=== PATIENT | male | born 1980 | race Caucasian/White ===

== ENCOUNTER 2018-07-17 16:09 | Inpatient (IN) | payer MEDICAID ==
[2018-07-17] VITALS (7 sets, daily range): BP systolic 118–165; BP diastolic 45–116
[~2018-07-17] VITALS: Ht 180.3 cm; Wt 90.7 kg
[~2018-07-17 16:09] MED LIST: ATENOLOL 100MG100 MG PO; ATIVAN1 MG PO; METOPROLOL TART25 MG PO; NORTRIPTYLINE H10 M1 PO; PRENATABS FA T1 EACH PO; TENORMIN50 MG PO; THIAMINE HCL100 MG PO
[2018-07-17] MEDS ORDERED: KEPPRA1000 MG PO (16:17)
[2018-07-17] MEDS ORDERED: TRAZODONE HCL100 MG PO (16:18)
[2018-07-17 16:57] LABS: ABSOLUTE BASOPHILS 0.1 thou/uL (0.0-0.2); ABSOLUTE LYMPHOCYTES 2.1 thou/uL (0.8-5.3); ABSOLUTE MONOCYTES 0.7 thou/uL (0.0-1.2); ABSOLUTE NEUTROPHILS 7.3 thou/uL (1.6-8.1); EOSINOPHILS 0.1 %; HEMATOCRIT 44.8 % (42.0-52.0); HEMOGLOBIN 15.1 gm/dL (14.0-18.0); LYMPHOCYTES 20.5 %; MCH 30.1 pg (26.0-34.0); MCHC 33.7 g/dL (28.0-37.0); MCV 89.4 fL (80.0-100.0); NUCLEATED RBCS 0 /100WBC; PLATELET COUNT* 373 thou/uL (150-400); POLYS 71.4 %; RBC 5.02 mil/uL (4.50-6.00); RDW-CV 13.6 % (10.5-14.5); WBC 10.3 thou/uL (4.0-11.0)
[2018-07-17 17:07] LABS: ANION GAP 13 mmol/L (7-16); BUN 8 mg/dL (7-18); CALCIUM 8.8 mg/dL (8.5-10.1); CHLORIDE 99 mmol/L (98-107); CO2 25 mmol/L (21-32); CREATININE 1.1 mg/dL (0.6-1.3); GLUCOSE 98 mg/dL (70-99); SODIUM 137 mmol/L (136-145)
[2018-07-17 17:09] LABS: APTT 23.7 Seconds (25.0-31.3); PROTIME 10.2 Seconds (9.20-11.50)
[2018-07-17 17:11] LABS: POTASSIUM 2.8 mmol/L (3.5-5.1)
[2018-07-17 17:17] LABS: ALBUMIN 4.1 g/dL (3.4-5.0); ALKALINE PHOSPHATASE 109 U/L (46-116); NT-PRO BRAIN NAT PEPTIDE 53 pg/mL (<300); SGOT 40 U/L (15-37); SGPT 51 U/L (30-65); TOTAL PROTEIN 7.7 g/dL (6.4-8.2); TROPONIN-I LEVEL <0.06 ng/mL (<0.06)
[2018-07-17 17:19] LABS: SALICYLATE < 2.8 mg/dL (2.8-20.0)
[2018-07-17 17:21] LABS: ACETAMINOPHEN < 2 ug/mL (10-30); ALCOHOL < 10 mg/dL (<10)
[2018-07-17] MEDS ORDERED: PROTONIX40 M1 PO (19:37)
[2018-07-17] MEDS ORDERED: ZYPREXA 5 MG TAB5 M1 PO (19:37)
[2018-07-17] MEDS ORDERED: NORVASC5 MG PO (19:38)
[2018-07-17] MEDS ORDERED: PRAZOSIN 1 MG CA1 M1 PO (19:38)
[2018-07-17 20:44] LABS: % SATURATION 44 % (20-39); IRON 158 ug/dL (50-175)
--- NOTE | 2018-07-17 22:18 | NUR ---
R IJ CENTRAL LINE PLACED BY DR KRISHNAN. STAT XRAY OBTAINED, PER DR KRISHNAN LINE IS OK TO USE.
[2018-07-17 23:09] LABS: AMMONIA < 10 umol/L (11-32); MAGNESIUM 2.2 mg/dL (1.8-2.4); PHOSPHORUS* 3.1 mg/dL (2.5-4.9)
--- NOTE | 2018-07-17 23:49 | NUR ---
ADMITTED TO ICU BED 2 AT 1950, SEE ASSESSMENTS. PTS HIGHEST CIWA 15, TREATED WITH ATIVAN ORDERED. ZOFRAN GIVEN X1 FOR NAUSEA. PT IS PLEASANT AND POLITE, STATES HE HAS HAD LONG PERIODS OF SOBRIETY IN THE PAST AND DESIRES TO QUIT ALCOHOL PERMANENTLY. STATES HE IS OPEN TO ATTENDING COMMUNITY BASED SUPPORT GROUPS SUCH AA AND HAS DONE SO IN THE PAST. PT REPORTS HISTORY OF SEIZURES WITH WITHDRAWL WELL SEIZURES WHEN SOBER AND NOT DETOXING. HOME MED LIST OBTAINED FROM [facility] PT COULD NOT RECALL MEDS OR DOSES. SEIZURE AND FALL PRECAUTIONS INITIATED. ORIENTED TO ROOM/CALL LIGHT. PT CURRENTLY SLEEPING. CALL LIGHT WITHIN REACH.
[2018-07-18] VITALS (16 sets, daily range): BP systolic 105–138; BP diastolic 28–93
[2018-07-18 03:29] LABS: HEMATOCRIT 37.9 % (42.0-52.0); MCHC 33.1 g/dL (28.0-37.0); MCV 90.8 fL (80.0-100.0); RBC 4.18 mil/uL (4.50-6.00); RDW-CV 13.4 % (10.5-14.5); WBC 6.6 thou/uL (4.0-11.0)
[2018-07-18 03:34] LABS: HEMOGLOBIN 12.6 gm/dL (14.0-18.0)
--- NOTE | 2018-07-18 03:37 | NUR ---
NO URINE OUTPUT SINCE ADMIT TO UNIT AT 1950. PT DENIES FEELING URGE TO VOID. BLADDER SCANNED, RESIDUAL AMOUNT 218ML. NO INTERVENTION AT THIS TIME.
[2018-07-18 03:46] LABS: ALBUMIN 2.9 g/dL (3.4-5.0); CALCIUM 7.4 mg/dL (8.5-10.1); MAGNESIUM 2.2 mg/dL (1.8-2.4); POTASSIUM 3.3 mmol/L (3.5-5.1); TOTAL BILIRUBIN 0.9 mg/dL (<0.1-1.0); TOTAL PROTEIN 5.7 g/dL (6.4-8.2)
--- NOTE | 2018-07-18 09:04 | EKG ---
[place] [address] ELECTROCARDIOGRAM REPORT Name: JOSH MONETRO Room: [address] ADM IN M.R.#: [id number] Admission: 07/17/18 Attend Phys: Dena Daniels MD Discharge: Date of : 82 Report #: [id number] THIS REPORT FOR: //name// [facility] ED Test Date: 2018-07-17 Test Time: 17:16:12 Pat Name: JOSH MONTERO Department: Room: [facility] Gender: M Studio Associate: Zoran PEREZ : 1980 Requested By: Kyree Cartwright Order Number: [id number] MD: Brandan Peña Measurements Intervals [place] Rate: 80 P: 8 NM: 123 QRS: -38 QRSD: 86 T: -35 QT: 402 QTc: 464 Interpretive Statements Sinus rhythm Left axis deviation Nonspecific T abnormalities, inferior leads Baseline wander in lead(s) V6 Compared to ECG 02/05/2015 07:28:11 no change Electronically Signed On 07-18-2018 9:03:49 FORMULA CLERK by Brandan Peña [email or web address] <ELECTRONICALLY SIGNED> By: Brandan Peña MD, FAC 07/18/18 0903 1716 1716 Brandan Peña MD, [facility] /EPI
--- NOTE | 2018-07-18 10:30 | NUR ---
PT ADMITTED 07/17 WITH ALCOHOL WITHDRAWL, IS SLEEPING NOW, HAS BEEN SEDATED FROM HIS ATIVAN. WILL ASSESS AT LATER TIME AND PROVIDE ALCOHOL TREATMENT OPTIONS.
--- NOTE | 2018-07-18 10:57 | NUR ---
PATIENT ALERT BUT SEDATE. CO BUGS AND SHAKES. TAKES PO WELL.
[2018-07-19] VITALS (18 sets, daily range): BP systolic 101–159; BP diastolic 46–113
[2018-07-19 05:06] LABS: HEMATOCRIT 38.3 % (42.0-52.0); HEMOGLOBIN 12.6 gm/dL (14.0-18.0); MCH 30.3 pg (26.0-34.0); MCHC 32.8 g/dL (28.0-37.0); MCV 92.2 fL (80.0-100.0); MPV 8.9 fl. (7.2-11.1); RBC 4.15 mil/uL (4.50-6.00); RDW-CV 13.7 % (10.5-14.5); WBC 7.9 thou/uL (4.0-11.0)
--- NOTE | 2018-07-19 05:06 | NUR ---
PT IS RESTING, NO S/S DISTRESS, WHEN AWAKE PT STATES THAT HE IS SEEING "SPOTS" ON THE WALL AND SEEING PEOPLE. PT IS CALM AND COOPERATIVE, TAKES ATIVAN PO FOR WITHDRAWALS. VSS, NSR ON TELE, VOIDING ADEQUATELY PER URINAL, NO BM LAST NIGHT.
[2018-07-19 05:09] LABS: ALBUMIN 2.8 g/dL (3.4-5.0); CALCIUM 7.7 mg/dL (8.5-10.1); MAGNESIUM 2.1 mg/dL (1.8-2.4); PHOSPHORUS* 3.3 mg/dL (2.5-4.9); POTASSIUM 3.6 mmol/L (3.5-5.1); TOTAL BILIRUBIN 0.5 mg/dL (<0.1-1.0); TOTAL PROTEIN 5.7 g/dL (6.4-8.2)
--- NOTE | 2018-07-19 10:00 | NUR ---
RN ASSUMED CARE OF PT THIS AM. PT AROUSABLE TO VOICE/GENTLE TOUCH, ORIENTED X4. C/O HEADACHE AND NAUSEA. GOALS FOR TODAY INCLUDE MOVING TO TELE/MED SURG FLOOR, CONTROLLING HEADACHE AND NAUSEA, AND MAINTAINGING STABLE VS. PT DENIES ANY CONCERNS/QUESTIONS AT THIS TIME. STATES JUST WANTS HEADACHE AND NAUSEA TO "GO AWAY".
--- NOTE | 2018-07-19 10:45 | NUR ---
Pt sleeping, unable to easily wake him up. Will assess at later time and discuss alcohol treatment options.
[2018-07-19 11:12] LABS: URINE BILIRUBIN NEGATIVE (Negative); URINE BLOOD NEGATIVE (Negative); URINE CLARITY CLEAR; URINE COLOR YELLOW; URINE GLUCOSE-RANDOM NEGATIVE (Negative); URINE KETONES NEGATIVE (Negative); URINE LEUKOCYTES-REFLEX NEGATIVE (Negative); URINE NITRITE-REFLEX NEGATIVE (Negative); URINE PROTEIN NEGATIVE (Negative); URINE UROBILINOGEN 0.2 E.U./dl (0.2-1.0)
[2018-07-19 11:47] LABS: AMP/METHAMP Negative (Negative); BARBITURATES Negative (Negative); BENZODIAZEPINES Negative (Negative); COCAINE Negative (Negative); METHADONE Negative (Negative); OPIATES Negative (Negative); PCP Negative (Negative); THC Negative (Negative)
--- NOTE | 2018-07-19 17:03 | NUR ---
PT SLOWLY PROGRESSING TOWARDS GOALS. VSS. AFEBRILE. PT ALERT AND ORIENTED X4. C/O HEADACHE AND NAUSEA THROUGHOUT SHIFT, STATES ATIVAN RELIEVES BOTH AND MAKES THEM TOLERABLE. PT TOLERATING PO INTAKE. VOIDING WITHOUT DIFFICULTY. NO BM THIS SHIFT. PT DECLINED GETTING UP TO CHAIR OR GETTING BATH. PT NEEDS MRI, MRI SCREENING DONE AND TO HAVE MRI TOMORROW MORNING. PT DENIES FURTHER QUESTIONS/CONCERNS AT THIS TIME.
--- NOTE | 2018-07-19 18:00 | NUR ---
REPORT GIVEN TO CHRISTIAN HUANG. PT TX TO 229. PT TX VIA WHEELCHAIR WITH STAFF. PAPER CHART AND ALL BELONGINGS SENT WITH PT.
--- NOTE | 2018-07-19 18:20 | NUR ---
PT TRANSFERED FROM ICU. SR ON MONITOR. BANANA BAG INFUSING. PT ORIENTED TO ROOM AND CALL LIGHT. PT VERBALIZED UNDERSTANDING.
--- NOTE | 2018-07-19 23:03 | NUR ---
PATIENT'S HEART RATE NOTED TO BE 120-150'S ON MANAGER LANDSCAPE. VITALS OBTAINED AND WNL. EKG OBTAINED, READS SINUS TACHYCARDIA, PROLONGED QT INTERVAL, INFERIOR INFARCT, OLD. PATIENT ASYMPTOMATIC AND LYING IN BED LISTENING TO MUSIC. PHYSICIAN NOTIFIED OF FINDINGS. NO NEW ORDERS RECIEVED.
[2018-07-20] VITALS: BP 123/84
[2018-07-20 04:00] VITALS: BP 125/68
--- NOTE | 2018-07-20 05:48 | NUR ---
PATIENT'S HEART RATE IMPROVED WITH TIME AND ETOH WITHDRAWAL MEDICATION, 100-120'S, ASYPTOMATIC. PATIENT HAS RESTED THROUGHOUT THE SHIFT AND HAS OCCASIONALLY WOKE UP AND LISTENED TO MUSIC. PATIENT VOIDS PER URINAL. HOURLY ROUNDING OBSERVED. CALL LIGHT WITHIN REACH
[2018-07-20 06:02] LABS: HEMOGLOBIN 12.8 gm/dL (14.0-18.0); MCHC 32.7 g/dL (28.0-37.0); MCV 91.6 fL (80.0-100.0); MPV 8.8 fl. (7.2-11.1); RBC 4.26 mil/uL (4.50-6.00); RDW-CV 13.5 % (10.5-14.5); WBC 17.5 thou/uL (4.0-11.0)
[2018-07-20 06:20] LABS: ALBUMIN 2.9 g/dL (3.4-5.0); CALCIUM 8.2 mg/dL (8.5-10.1); CREATININE 1.2 mg/dL (0.6-1.3); MAGNESIUM 1.9 mg/dL (1.8-2.4); TOTAL BILIRUBIN 0.7 mg/dL (<0.1-1.0); TOTAL PROTEIN 6.2 g/dL (6.4-8.2)
[2018-07-20 06:31] LABS: POTASSIUM 2.9 mmol/L (3.5-5.1)
[2018-07-20 08:00] VITALS: BP 115/74
[2018-07-20 11:57] VITALS: BP 146/86
--- NOTE | 2018-07-20 12:41 | EKG ---
[place] [address] ELECTROCARDIOGRAM REPORT Name: JOSH MONTERO Room: [address] ADM IN M.R.#: [id number] Admission: 07/17/18 Attend Phys: Dena Daniels MD Discharge: Date of : 82 Report #: [id number] THIS REPORT FOR: //name// [facility] Test Date: 2018-07-19 Test Time: 22:15:21 Pat Name: JOSH MONTERO Department: Room: [address] Gender: M Bulb Filler: AUDELIA : 1980 Requested By: Abraham May Order Number: [id number] MD: Brandan Peña Measurements Intervals [place] Rate: 151 P: 23 PA: 152 QRS: -45 QRSD: 74 T: QT: 352 QTc: 559 Interpretive Statements Sinus tachycardia Inferior infarct, old Prolonged QT interval Compared to ECG 07/17/2018 17:16:12 Prolonged QT interval now present Sinus rhythm no longer present Electronically Signed On 07-20-2018 12:40:59 JAI ALAI PLAYER by Brandan Peña [email or web address] <ELECTRONICALLY SIGNED> By: Brandan Peña MD, [facility] 07/20/18 1240 2215 2215 Brandan Peña MD, [facility] /EPI
--- NOTE | 2018-07-20 13:13 | NUR ---
ASSESSMENT COMPLETED REFER TO COMPUTER CHARTING. CARIDAC MONITOR TRACKING ST. PATIENT RESTING IN BED REPORTING NO PAIN, NAUSEA OR SHORTNESS OF BREATH. BED IN LOW AND LOCKED POSITION. CALL LIGHT WITHIN REACH. SIDE RAILS UP AND PADDED. PATIENT ON ROOM AIR. IV REPLACED AND CENTRAL LINE REMOVED. IV FLUIDS INFUSING. CWAW CHARTED. WILL CONTINUE TO MONITOR.
[2018-07-20 15:38] VITALS: BP 99/70
--- NOTE | 2018-07-20 16:00 | NUR ---
CM UNABLE TO SPEAK WITH PT.TODAY. DYED YARN OPERATOR WAS BEGINNING ECHO CARDIOGRAM.WILL SEE IN AM.
[2018-07-20 19:00] VITALS: BP 123/88
--- NOTE | 2018-07-20 23:20 | NUR ---
PT ASSESSMENT COMPLETED. CIWA NOTED TO BE 15. PT HAS NOTABLE TREMORS AND REPORTS HALLUCINATIONS. PT IS PLEASANT AND COMPLIANT, ABLE TO FOLLOW COMMANDS. PT DENIES PAIN, N/V/D. PT CURRENTLY DOES NOT HAVE IV ASCCESS. RIGHT ARM RED AND SWOLLEN AND TENDER TO THE TOUCH. CLWR. PT DENIES ANY FURTHER NEEDS.
[2018-07-21] VITALS: BP 122/80
[2018-07-21 04:00] VITALS: BP 111/76
[2018-07-21 05:46] LABS: ABSOLUTE EOSINOPHILS 0.3 thou/uL (0.0-0.7); ABSOLUTE LYMPHOCYTES 2.9 thou/uL (0.8-5.3); ABSOLUTE MONOCYTES 0.9 thou/uL (0.0-1.2); ABSOLUTE NEUTROPHILS 5.8 thou/uL (1.6-8.1); BASOPHILS 0.5 %; HEMATOCRIT 39.9 % (42.0-52.0); HEMOGLOBIN 13.2 gm/dL (14.0-18.0); MCH 30.2 pg (26.0-34.0); MCHC 33.1 g/dL (28.0-37.0); MCV 91.3 fL (80.0-100.0); MONOCYTES 9.1 %; MPV 8.8 fl. (7.2-11.1); NUCLEATED RBCS 0 /100WBC; PLATELET COUNT* 237 thou/uL (150-400); POLYS 58.4 %; RBC 4.37 mil/uL (4.50-6.00); RDW-CV 13.6 % (10.5-14.5); WBC 9.9 thou/uL (4.0-11.0)
[2018-07-21 06:07] LABS: ALBUMIN 2.9 g/dL (3.4-5.0); CALCIUM 8.6 mg/dL (8.5-10.1); TOTAL BILIRUBIN 0.5 mg/dL (<0.1-1.0); TOTAL PROTEIN 6.6 g/dL (6.4-8.2)
[2018-07-21 08:00] VITALS: BP 125/76
--- NOTE | 2018-07-21 09:50 | NUR ---
PATIENT CARE ASSUMED AT 0700. PATIENT ASLEEP UPON ENTERING ROOM, BUT AWOKEN WITH MINIMIAL STIMULATION. AOX4. DOES REPORT TACTILE HALLUCINATIONS, BUT STATES "ALL VISUAL AND AUDITORY HALLCUNATIONS ARE GONE". DENIES PAIN. DENIES NAUSEA/VOMITING. DOES REPORT SMALL HEADACHE WITH SOME ANXIETY. CIWA 11. PATIENT GIVEN PRN DOSE OF ATIVAN. PATIENT HAS NO IV NO ONE HAS BEEN ABLE TO PLACE ONE. WILL CLARIFY WITH PHYSICIAN PATIENT NEEDS FOR ACCESS. SEIZURE PRECAUTIONS IN PLACE, HAS HAD NO ACTIVITY, BUT DOES HAVE MINIMAL TREMORS VISUALIZED. ENCOURAGED TO GET BATH, BUT PATIENT STATED "LATER TODAY I WILL". DENIES FURTHER NEEDS FROM NURSING AT THIS TIME. WILL CONTINUE WITH PLAN OF CARE.
--- NOTE | 2018-07-21 10:01 | NUR ---
DR ROOT IN TO SEE PATIENT. GAVE ORDERS FOR IT TO BE OKAY FOR NURSING TO LEAVE IV ACCESS OUT. HOWEVER, PHYSICIAN LEFT THE FLOOR, PATIENT BLOOD CULTURES RETURNED GRAM POSITIVE COCCI. PHYSICIAN PAGED.
--- NOTE | 2018-07-21 11:41 | NUR ---
SW met briefly with pt and provided alcohol abuse and support resources/referral lists. Pt was very sleepy but thankful for the information.
[2018-07-21 12:00] VITALS: BP 102/74
[2018-07-21 14:30] VITALS: BP 112/80
--- NOTE | 2018-07-21 14:39 | NUR ---
DR ROOT ORDERED PICC LINE R/T POSITIVE BLOOD CULTURES FROM INFECTED CENTRAL LINE. PLACED BY [facility]. [facility] PICC NURSE. DOUBLE LUMEN POWER PORT PLACED. IV ANITBIOTICS HUNG LATE R/T NO ACCESS, BUT ARE RUNNING AT THIS TIME. PATIENT TOLERATED PROCEDURE WELL AND VOICED NO CONCERNS.
--- NOTE | 2018-07-21 17:44 | NUR ---
NO ACUTE EVENTS SINCE PICC LINE INSERTION. PATIENT SHOWERED INDEPENDENTLY PRIOR TO INSERTION. PATIENT SITTING UP FOR ALL MEALS, GOOD APPETITE. STILL REPORTS HEADACHE, SLIGHT ANXIETY, AND MINIMAL TACTILE HALLUCATIONS. CIWA 8-12 TODAY. PICC LINE DRESSING REINFORCED R/T PATIENT SWEATING OFF DRESSING AROUND THE CORNERS. PATIENT DENIES FURTHER NEEDS.
[2018-07-21 19:00] VITALS: BP 129/87
--- NOTE | 2018-07-21 22:25 | NUR ---
PT TRACING SR ON MONITOR. PT IS HAVING TREMORS AND REPORTS HALLUCINATIONS. PT DENIES PAIN, N/V/D. PT IS PLEASANT AND FOLLOWS ALL COMMANDS APPROPRIATELY. CIWA IS 8. PRN ATIVAN GIVEN. PT IS RESTLESS. PICC TO LUE, DRESSING C/D/I. CLWR
[2018-07-22 00:07] VITALS: BP 107/72
[2018-07-22 04:52] LABS: ABSOLUTE BASOPHILS 0.1 thou/uL (0.0-0.2); ABSOLUTE EOSINOPHILS 0.4 thou/uL (0.0-0.7); ABSOLUTE LYMPHOCYTES 2.7 thou/uL (0.8-5.3); ABSOLUTE MONOCYTES 0.9 thou/uL (0.0-1.2); ABSOLUTE NEUTROPHILS 6.4 thou/uL (1.6-8.1); BASOPHILS 0.8 %; EOSINOPHILS 3.5 %; HEMATOCRIT 39.4 % (42.0-52.0); HEMOGLOBIN 12.9 gm/dL (14.0-18.0); LYMPHOCYTES 25.8 %; MCH 30.1 pg (26.0-34.0); MCHC 32.8 g/dL (28.0-37.0); MCV 91.9 fL (80.0-100.0); MONOCYTES 8.8 %; MPV 9.4 fl. (7.2-11.1); NUCLEATED RBCS 0 /100WBC; PLATELET COUNT* 243 thou/uL (150-400); POLYS 61.1 %; RBC 4.29 mil/uL (4.50-6.00); RDW-CV 13.7 % (10.5-14.5); WBC 10.4 thou/uL (4.0-11.0)
[2018-07-22 05:06] LABS: ALBUMIN 2.9 g/dL (3.4-5.0); CALCIUM 8.9 mg/dL (8.5-10.1); CREATININE 1.2 mg/dL (0.6-1.3); POTASSIUM 3.7 mmol/L (3.5-5.1); TOTAL BILIRUBIN 0.4 mg/dL (<0.1-1.0); TOTAL PROTEIN 6.6 g/dL (6.4-8.2)
[2018-07-22 05:19] VITALS: BP 125/68
--- NOTE | 2018-07-22 05:24 | NUR ---
PT WAS RESTLESS MOST OF THIS SHIFT AND IS NOW SLEEPING. PT CONTINUES TO DENY PAIN. PRN ATIVAN GIVEN X 1 WITH GOOD RESULTS. TRACING SR ON MONITOR. CLWR
[2018-07-22 08:10] VITALS: BP 131/85
--- NOTE | 2018-07-22 09:28 | CON ---
[address] [address] CONSULTATION Name: JOSH MONTERO Room: [address] IN ..#: [id number] Admission: 07/17/18 Attend Phys: Dena Daniels MD Discharge: Date of : 82 Report #: [id number] THIS REPORT FOR: //name// CC: TRAVIS physician/PCP Dena Daniels DATE OF SERVICE: 07/21/2018 CONSULTATION: Infectious diseases. HISTORY OF PRESENT ILLNESS: Josh Go is a 38-year-old white male who was admitted to the hospital on 07/17 with alcohol withdrawal seizures. The patient describes his alcohol consumption is about 2 liters of vodka per day. He has had a history of seizures with or without alcohol withdrawal and has been prescribed anticonvulsant medicine. He, however, was currently not taking any medication. He had stopped alcohol for about 30 hours when he had a witnessed seizure. He was brought to the hospital. He was watched in the ICU and given appropriate alcohol withdrawal treatment. He was transferred to the floor and on 07/20 had a fever up to 102.2. Blood cultures x 2 were drawn. Infectious Disease consultation was requested. PAST MEDICAL HISTORY: Significant for hypertension, bipolar disease, seizure disorder and alcoholism. FAMILY HISTORY: Noncontributory. SOCIAL HISTORY: The patient is single. 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 He denies use of tobacco. He was at his mother's house at the time of the admission. He does have the alcohol consumption history as noted. He estimates his daily consumption as 2 liters of vodka. He has occasional marijuana, but denies other drugs. REVIEW OF SYSTEMS: The patient complains of being sleepy. He attributes this to the Ativan, which has been used for seizure and withdrawal. He says he feels crummy all over, but really has no other specific complaints. Denies any headache, sinus congestion, sore throat or trouble swallowing. He denies any confusion or decreased mental status. Denies cough, chest pain or shortness of breath. Denies nausea, vomiting, diarrhea or constipation. Denies pain in his extremities. PHYSICAL EXAMINATION: GENERAL: The patient appears his stated age, alert, oriented, sleepy, but arousable, not in any distress. VITAL SIGNS: Show temperature is afebrile at the time of my examination. SKIN: Shows no rash, lesion or exanthem. There is a tape burn from a previous IV in his right arm, but it does [place] [address] CONSULTATION Name: JOSH MONTERO Megan Room: [address] IN ..#: [id number] Admission: 07/17/18 Attend Phys: Dena Daniels MD Discharge: Date of : 82 Report #: [id number] ENT: Negative. NECK: Supple. HEART: Sounds S1, S2. LUNGS: Clear to anterior auscultation. ABDOMEN: Belly is obese, soft and not tender. EXTREMITIES: Unremarkable. LABORATORY STUDIES: White count was 6000 on admission, was up to 17.5 with the fever yesterday and it is now down to 9.9, hemoglobin 13.2 and platelet 237,000. Electrolytes are normal today with BUN 7, creatinine 1.0 and glucose 91. His potassium was 2.8 on admission, but has been corrected with replacement therapy. Liver function tests show mild elevation of the SGOT at 46 and alkaline phosphatase at 129. SGPT is normal. The alcohol level on admission was undetectable. Chest x-ray shows right middle lobe and right lower lobe infiltrates. Blood cultures have Gram-positive cocci in 1 out of 2 sets. The patient did have an internal jugular catheter placed by the surgeon on admission for IV access. This has been removed. The patient now has no IV access. He has a positive blood culture. It is possible the patient may have a staph bacteremia possibly from the line. The blood culture in just 1 of 2 sets with gram-positive cocci could just be a contaminant, particularly if the ID shows it to be a coag negative staph. The patient does has new infiltrates on the chest x-ray. With the history of seizures and sedation, he certainly would be a risk for aspiration event. The infiltrate was in the right lower lobe, which is a typical location for aspiration pneumonia. IMPRESSION: At this time, I would like to replace IV catheter with a PICC line. If he has high-grade Staph sepsis, we may need to change this once the bacteremia clears. However, for now we will need IV access. I would like to repeat blood cultures x 2 and start the patient on vancomycin for Staph and Zosyn for possible aspiration pneumonia. I want to do a follow up CBC, CMP and chest x-ray as well as lactate. Incentive spirometry may be helpful as I suspect there may be a component of atelectasis with the patient's sleepiness and sedation. I appreciate the opportunity of input in the care of this unfortunate gentleman. I will be happy to follow him through the weekend until Dr. Cifuentes returns on Monday. Thank you for this consultation. <ELECTRONICALLY SIGNED> By: Andrew Krishnamurthy MD 07/22/18 0928 1126 2050MD dayami Orosco
--- NOTE | 2018-07-22 10:00 | NUR ---
ASSUMED CARE OF PT AT 0730. PT RESTING IN BED. PT A&0X4, DENIES ANY PAIN OR SHORTNESS OF BREATH AT THIS TIME. TREMORS NOTED- PT GIVEN PO ATIVAN WITH RELIEF. PT TRACING SR ON THE MEDICAL REIMBURSEMENT MANAGER. ON RA SAT UPPER 90'S. PT UP SBA TO BATHROOM. CIWA COMPLETED-REFER TO CHARTING. PT HAD CXR THIS AM-REFER TO RESULTS. PT GOAL FOR TODAY IS TO MONITOR CIWA, IV ABX AND INCREASE ACTIVITY. AM ASSESSMENT CHARTED. MEDICATIONS PER NOV. PT REPOSITIONS SELF. HOURLY ROUNDING OBSERVED. BED IN LOW POSITION. CALL LIGHT WITHIN REACH. SEIZURE PRECAUTIONS IN PLACE. WILL CONTINUE PLAN OF CARE.
[2018-07-22 12:00] VITALS: BP 128/70
[2018-07-22 16:15] VITALS: BP 120/84
[2018-07-22 19:15] VITALS: BP 139/92
--- NOTE | 2018-07-22 22:35 | NUR ---
PT TRACING SR ON MONITOR. PT DENIES PAIN, N/V/D AT THIS TIME. PT CIWA SCORE 7. PT REPORTS FEELING ANSIOUS. TREMORS HAVE LESSENED. DL PICC TO LUE FLUSHES AND DRAWS WELL. PT DENIES FURTHER NEEDS AT THIS TIME.
[2018-07-23 00:48] VITALS: BP 128/91
[2018-07-23 04:41] VITALS: BP 122/88
--- NOTE | 2018-07-23 05:48 | NUR ---
PT AWAKE MOST OF THIS SHIFT. NO C/O PAIN. PT HAS NOW DEVELOPED A CONGESTED NON PRODUCTIVE COUGH. NO OTHER CONCERNS AT THIS TIME.
[2018-07-23 08:30] VITALS: BP 127/86
--- NOTE | 2018-07-23 15:45 | NUR ---
CONTINUE TO FOLLOW, MET WITH PT. A/O TODAY. STATES HE HAS THE ETOH RESOURCE INFO AND HAS A PLAN AT [place]. PT HAS BEEN TO INTO DETOX AT [facility] IN THE PAST. PT IS AWARE THAT HE HAS TO MAKE CALLS TO SET UP HIS OWN REHAB. PT DENIES HAVING A DPOA, DISCUSSED OPTIONS AND HE PLANS TO F/U AT [facility]. DENIES OTHER DC NEEDS
--- NOTE | 2018-07-23 16:32 | NUR ---
PATIENT HAVING TREMORS THIS EVENING, DR. ROOT NOTIFIED JENIFER HATCH WAS DC'D THIS AM. SCHED IV ABX INFUSING ORDERED, OTHERWISE PICC LINE SL. PATIENT UP AND WORKING WITH PT/OT ORDERED. VOIDING LARGE AMOUNTS OF URINE PER URINAL. BID MUCINEX AND QID TESSALON PEARLS ORDERED FOR COUGH. PATIENT MADE MS STATUS THIS AM.
[2018-07-23 16:52] VITALS: BP 129/94
[2018-07-23 19:00] VITALS: BP 145/83
--- NOTE | 2018-07-24 00:04 | NUR ---
PATIENT TRANSFERRED TO ROOM 107 FROM TELEMETRY. REPORT GIVEN FROM NIGHT NURSE. ORTHO NURSE AGREES WITH ASSESSMENT OF PATIENT. PATIENT IS ALERT AND ORIENTED X 4. NO C/O PAIN AT THIS TIME. VSS ON RA. SEIZURE PRECAUTIONS IN PLACE. PATIENT INSTRUCTED TO USE CALL LIGHT WHEN NEEDING ASSISTANCE. HOURLY ROUNDS TO BE MADE. WILL CONTINUE WITH PLAN OF CARE AND NURSING TO MONITOR.
--- NOTE | 2018-07-24 01:29 | NUR ---
PT ASSESSMENT COMPLETE AT START OF SHIFT. PT DENIES PAIN. PT IS M/S STATUS AND TRANSFERRED AT APPROXIMATELY 2300 TO ROOM 107 JOINT AND SPINE UNIT. REPORT GIVEN TO Aleksandr GARCIA. NO NEW CONCERNS AT THIS TIME.
--- NOTE | 2018-07-24 06:13 | NUR ---
PATIENT HAS SLEPT WELL SINCE BEING ADMITTED TO UNIT. NO C/O PAIN. VSS ON RA. PATIENT IS UP WITH SBA TO THE BATHROOM. PICC TO LEFT UPPER ARM-SL. IV ABT'S GIVEN WITHOUT ANY ADVERSE SIDE EFFECTS NOTED. MEDICATIONS GIVEN AND CHARTED. PATIENT INSTRUCTED TO USE CALL LIGHT WHEN NEEDING ASSISTANCE. HOURLY ROUNDS MADE. WILL CONTINUE WITH PLAN OF CARE AND NURSING TO MONITOR.
[2018-07-24 06:24] LABS: ALBUMIN 3.2 g/dL (3.4-5.0); CALCIUM 8.9 mg/dL (8.5-10.1); CREATININE 1.4 mg/dL (0.6-1.3); POTASSIUM 3.9 mmol/L (3.5-5.1); TOTAL BILIRUBIN 0.4 mg/dL (<0.1-1.0); TOTAL PROTEIN 6.8 g/dL (6.4-8.2)
[2018-07-24 07:57] LABS: ABSOLUTE BASOPHILS 0.1 thou/uL (0.0-0.2); ABSOLUTE EOSINOPHILS 0.3 thou/uL (0.0-0.7); ABSOLUTE LYMPHOCYTES 2.4 thou/uL (0.8-5.3); ABSOLUTE MONOCYTES 1.5 thou/uL (0.0-1.2); ABSOLUTE NEUTROPHILS 5.6 thou/uL (1.6-8.1); HEMOGLOBIN 13.8 gm/dL (14.0-18.0); MCH 30.1 pg (26.0-34.0); MCHC 32.9 g/dL (28.0-37.0); MCV 91.2 fL (80.0-100.0); MONOCYTES 14.8 %; MPV 8.7 fl. (7.2-11.1); NUCLEATED RBCS 0 /100WBC; PLATELET COUNT* 267 thou/uL (150-400); POLYS 57.2 %; RDW-CV 13.8 % (10.5-14.5); WBC 9.8 thou/uL (4.0-11.0)
[2018-07-24 08:36] VITALS: BP 135/92
--- NOTE | 2018-07-24 11:29 | NUR ---
ASSUMED CARE OF PT THIS AM AROUND 0715- UPON ASSESSMENT PT NOTED TO BE RESTING IN BED, EYES CLOSED- PT A&O X4- CONTINENT OF BOWEL AND BLADDER- SBA WITH TRANSFERS FOR SAFETY- SEIZURE PRECAUTIONS IN PLACE INDICATED- LCTA, RESP EVEN AND UN-LABORED- VSS, O2 SAT 96% ON RA-ABDOMEN SOFT/ROUND/NON-TENDER, BS X4 QUADS- LAST BM REPORTED 07/23/18- DOUBLE LUMEN PICC NOTED TO LEFT UE INTACT, IV ABTN INFUSSING PRESCIBED- IV HERE TO ASSESS THIS AM, IV VANC D/C'D- FAIR PO INTAKE NOTED THIS AM WITH BREAKFAST- PT RATES PAIN 12/19 TO BACK R/T POSTITIONING, REPOSITIONNG IN PLACE INDICATED- CALL LIGHT AND PERSONAL BELONGINGS WITH IN REACH- HOURLY ROUNDS IN PLACE R/T SAFETY/NEEDS- ALL NEEDS MET AT THIS TIME-WCTM
--- NOTE | 2018-07-24 16:16 | NUR ---
PT AYANAENLTY RESTING IN BED, SEIZURE PRECAUTIONS IN PLACE AND MAINTAINED INDICATED- LUE PICC IN PLACE INDICATED, IV ABT GIVEN THIS SHIFT PRESCIBED- GOOD PO INTAKE NOTED THIS SHIFT WITH MEALS- MRSA SWAB COLLECTED THIS SHIFT ORDERED AND SENT FOR LAB FOR TESTING, PENDING RESULTS- CALL LIGHT AND PERSONAL BELONGINGS WITH IN REACH- PT MAKES NEEDS KNOWN- ALL NEEDS MET AT THIS TIME-WCTM
[2018-07-24 16:22] VITALS: BP 138/88
[2018-07-24 20:00] VITALS: BP 135/89
[2018-07-25 02:06] LABS: HEPATITIS B SURFACE AG Negative (Negative)
--- NOTE | 2018-07-25 03:38 | NUR ---
ASSESSMENT: PT REMAIN ALERT AND ORIENT TIMES FOUR. MORALES. UP TO BR WITH STEADY GAIT. DENIES HALLUCINATIONS, TREMORS, DIAPHORESIS...CIWA = ZERO. PLEASANT AND COOPERATIVE DURING THIS SHIFT. VSS, AFEBRILE. LEFT UPPER PICC PATENT, YET SLUGGISH AND DIFFICULT TO DRAW. TOLERATING PO INTAKE AND REGULAR DIET. DENIES PAIN, SOB AND N/V. DID REQUEST TO HAVE ALPRAZOLAM AT HS. NO SEIZURE ACTIVITY NOTE NOR RECORDED DURING THIS SHIFT. SLOW PROGRESS TOWARDS DC GOALS, WILL CONTINUE TO MONITOR.
[2018-07-25 05:48] LABS: ABSOLUTE BASOPHILS 0.1 thou/uL (0.0-0.2); ABSOLUTE EOSINOPHILS 0.3 thou/uL (0.0-0.7); ABSOLUTE LYMPHOCYTES 2.4 thou/uL (0.8-5.3); ABSOLUTE NEUTROPHILS 4.8 thou/uL (1.6-8.1); BASOPHILS 0.7 %; EOSINOPHILS 3.2 %; HEMATOCRIT 40.4 % (42.0-52.0); HEMOGLOBIN 13.1 gm/dL (14.0-18.0); LYMPHOCYTES 27.7 %; MCH 29.9 pg (26.0-34.0); MCHC 32.6 g/dL (28.0-37.0); MONOCYTES 12.1 %; NUCLEATED RBCS 0 /100WBC; PLATELET COUNT* 250 thou/uL (150-400); POLYS 56.3 %; RBC 4.39 mil/uL (4.50-6.00); RDW-CV 14.1 % (10.5-14.5); WBC 8.5 thou/uL (4.0-11.0)
[2018-07-25 06:04] LABS: CALCIUM 9.2 mg/dL (8.5-10.1); CREATININE 1.3 mg/dL (0.6-1.3); POTASSIUM 3.6 mmol/L (3.5-5.1)
[2018-07-25 07:30] VITALS: BP 123/93
[2018-07-25 09:21] VITALS: BP 123/93
--- NOTE | 2018-07-25 12:28 | NUR ---
Nutrition: Pt assessed for LOS. Tolerating Regular diet. Was admitted with ETOH w/d, bacteremia. H/o bipolar. Wt is at usual of ~200#. Alb 3.2, prealb 19.2. Pt appears at low nutrition risk.
[2018-07-25 13:15] VITALS: BP 115/91
--- NOTE | 2018-07-25 15:19 | NUR ---
I have reviewed the reassessment and documentation by student nurse Bonita Broussard and agree
[2018-07-25 15:27] VITALS: BP 126/88
--- NOTE | 2018-07-25 17:22 | NUR ---
REVIEWED AND AGREE WITH ALL CHARTING AND ASSESSMENTS COMPLETED BY ENDY Louie RN.
--- NOTE | 2018-07-25 17:24 | NUR ---
PT REMAINED ALERT AND ORIENTED THIS SHIFT. PT C/O RT ARM PAIN. US OF SOFT TISSUES IN RIGHT EXTREMITY ORDERED, NOT COMPLETED AT THIS TIME. PT DENIES ANY FURTHER NEEDS AT THIS TIME. HOURLY ROUNDING COMPLETED. BED ALARM ON. WILL CONTINUE TO MONITOR.
[2018-07-25 20:00] VITALS: BP 150/100
--- NOTE | 2018-07-26 00:21 | NUR ---
REPORT WAS GIVEN TO NICKY GONZALES ON THIS PT. PT IS A&OX4. UP TO BR WITH STEADY GAIT. PRN PAIN MEDICATION GIVEN. BP WAS ELEVATED AT THE BEGINNING OF THE SHIFT, DID DECREASE POST PAIN MEDICATION AND XANAX. NO FURTHER QUESTIONS NOR COMPLAINTS. DINO POWELL.
--- NOTE | 2018-07-26 00:44 | NUR ---
ASSUMED CARE OF PT FROM Jill MASON AT APPROXIMATELY 0015. AGREE WITH PREVIOUS ASSESSMENT. CLWR.
--- NOTE | 2018-07-26 06:48 | NUR ---
PT HAS SLEPT T/O THIS SHIFT. NO C/O PAIN
[2018-07-26 08:29] VITALS: BP 127/87
[2018-07-26 12:52] VITALS: BP 127/87
[2018-07-26 13:50] VITALS: BP 127/87
[2018-07-26] MEDS ORDERED: AUGMENTIN 875-1 EACH PO (13:59)
--- NOTE | 2018-07-26 15:07 | NUR ---
REVIEWED AND AGREE WITH ALL CHARTING AND ASSESSMENTS COMPLETED BY ENDY Louie RN.
--- NOTE | 2018-07-26 16:21 | NUR ---
PT GIVEN DISCHARGE INFORMATION AT THIS TIME. PRESCRIPTIONS GIVEN. PICC REMOVED. PT DENIED ANY FURTHER QUESTIONS OR CONCERNS AT THIS TIME. HOURLY ROUNDING COMPELTED.
--- NOTE | 2018-08-04 15:44 | CON ---
[address] [address] CONSULTATION Name: JOSH MONTERO Room: [address] IN M.R.#: [id number] Admission: 07/17/18 Attend Phys: Dena Daniels MD Discharge: 07/26/18 Date of : 82 Report #: [id number] THIS REPORT FOR: //name// CC: TRA[facility] physician/PCP Dena Daniels DATE OF SERVICE: 07/18/2018 HISTORY OF PRESENT ILLNESS: This is a 38-year-old male patient who was evaluated by me for seizure. The patient gives a history that this is his either third or the fourth seizure. Initial seizure was because of alcohol withdrawal but then he had 1-2, which was not related to any alcohol withdrawal. At this time, he was drinking heavily, then he stopped drinking alcohol 24 hours prior to this seizure, then he had a grand mal seizure. He feels he is back to the baseline. His medication is not clear. He has been on Keppra, but he cannot tell me how long he has been on Keppra. REVIEW OF SYSTEMS: Indicate multiple seizures this patient has. Some of them are pretty typical alcohol withdrawal seizures and some of them are not. He does have a history of bipolar disorder and hypertension. His compliance is extremely poor. His last admission was in [place]. I do not have those records available to me. I carried out 14-point review of system in this patient the best I could both from the record and this is the best 14-point review of system, I can carry out. He denies any history of diabetes. He indicates he smokes but he does not use drugs like cocaine and amphetamines. PAST MEDICAL HISTORY: Positive for seizure. FAMILY HISTORY: Negative for congenital epilepsies. SOCIAL HISTORY: The patient smokes as well as drink alcohol. PHYSICAL EXAMINATION: NEUROLOGICAL: The patient's examination is relatively poor because of cooperation and sleepiness. He is alert. He is responsive. He can follow simple command. His speech looks unremarkable. His memory and fund of knowledge is diminished but difficult to tell because the patient is not able to cooperate very well. Cranial nerve examination looks mostly unremarkable when he cooperates. He moves all 4 extremities. He is complaining of episode of paresthesias in the hands and feet. His reflexes are diminished. His tone looks symmetrical. He has no meningeal sign. NECK: There is no carotid bruit in this patient. He has no thyroid mass. HEART: His pulses are somewhat difficult to feel. His cardiac examination is unremarkable. LUNGS: He has no respiratory difficulty or rhonchi. VITAL SIGNS: His blood pressure is 110/78, temperature is 99 [place] [address] CONSULTATION Name: JOSH MONTERO Room: [address]#: [id number] Admission: 07/17/18 Attend Phys: Dena Daniels MD Discharge: 07/26/18 Date of : 82 Report #: [id number]. RADIOLOGICAL DATA: The head CT in this patient showed some basal ganglia and calcification. IMPRESSION: The patient appeared to have alcohol-related seizure. He said he had some seizures in the past. It looks like he is on Keppra. He needs to stop drinking alcohol. We will leave him on Keppra for the time being. I will try to get an MRI done in this patient when he stabilized. Presently, I will get an electroencephalogram done. I think he needs to be on alcohol withdrawal precautions including banana bags and Ativan that is already ordered. RECOMMENDATIONS: 1. EEG. 2. Alcohol withdrawal precaution. 3. He is on Keppra. 4. Presently, I will just leave him on the same dose of Keppra but try to change the dosages once the workup is available. Thank you very much for this referral. If you have any question, please feel free to contact me. <ELECTRONICALLY SIGNED> By: Javed Boateng MD 08/04/18 1544 1345 0004Javed Boateng MD /nt
--- NOTE | 2018-08-04 15:44 | EEG ---
[address] [address] EEG STUDY REPORT Name: JOSH MONTERO Room: [address] M.R.#: [id number] Admission: 07/17/18 Attend Phys: Dena Daniels MD Discharge: 07/26/18 Date of : 82 Report #: [id number] THIS REPORT FOR: //name// CC: [facility] physician/PCP Dena Daniels DATE OF SERVICE: 07/18/2018 This patient had an episode of seizure. EEG was done by placing the electrode by standard 10-20 system of electrode placement. Both referential and sequential montages were used for recording. Background activity in this patient's EEG is about 9 Hz and 30 microvolt. The patient is sleeping most of the time and that is associated with bilateral slowing and vertex sharp waves. Photic stimulation is unremarkable. IMPRESSION: EEG is intermixed with some theta range slowing. That is a nonspecific abnormality, which can occur with drowsiness, effect of psychotropic medication, encephalopathy, dementia, etc. Clinical correlation is recommended. <ELECTRONICALLY SIGNED> By: Javed Boateng MD 08/04/18 1544 0836 [id number] Boateng MD /nt
== END 2018-07-26 16:21 | disposition home or self-care (01) | DRG 100 ==
LOC: M.ERS 16:09 → M.TBA-ER 17:24 → M.ICU 17:24 → M.ORTHSURG 07-18 19:00 → M.ICU 07-18 19:19 → M.2W 07-19 17:58 → M.ORTHSURG 07-23 22:27
PROVIDERS: Family Medicine; Internal Medicine; Internal Medicine Infectious Disease; Specialist; ADMIT Internal Medicine
PROC: 02HV33Z Insertion of Infusion Device into Superior Vena Cava, Percutaneous Approach (ICD-10-PCS; principal; 2018-07-17)
DX: G40.509 Epileptic seizures related to external causes, not intractable, without status epilepticus (principal); J69.0 Pneumonitis due to inhalation of food and vomit; F10.239 Alcohol dependence with withdrawal, unspecified; T82.7XXA Infection and inflammatory reaction due to other cardiac and vascular devices, implants and grafts, initial encounter; I10 Essential (primary) hypertension; Y84.8 Other medical procedures as the cause of abnormal reaction of the patient, or of later complication, without mention of misadventure at the time of the procedure; Y92.238 Other place in hospital as the place of occurrence of the external cause; K70.10 Alcoholic hepatitis without ascites; F31.9 Bipolar disorder, unspecified; Z79.899 Other long term (current) drug therapy; Z91.14 Patient's other noncompliance with medication regimen

== ENCOUNTER 2018-09-05 14:37 | Inpatient (IN) | payer MEDICAID ==
[~2018-09-05] VITALS: Ht 177.8 cm; Wt 93.9 kg
[~2018-09-05 14:37] MED LIST changes: +AUGMENTIN 875-1 EACH PO; +KEPPRA1000 MG PO; +NORVASC5 MG PO; +PRAZOSIN 1 MG CA1 M1 PO; +PROTONIX40 M1 PO; +TRAZODONE HCL100 MG PO; +ZYPREXA 5 MG TAB5 M1 PO
[2018-09-05 14:45] VITALS: BP 138/101
[2018-09-05 15:49] LABS: ABSOLUTE BASOPHILS 0.1 thou/uL (0.0-0.2); ABSOLUTE EOSINOPHILS 0.1 thou/uL (0.0-0.7); ABSOLUTE LYMPHOCYTES 1.5 thou/uL (0.8-5.3); ABSOLUTE MONOCYTES 0.6 thou/uL (0.0-1.2); ABSOLUTE NEUTROPHILS 5.1 thou/uL (1.6-8.1); BASOPHILS 1.2 %; EOSINOPHILS 0.9 %; HEMOGLOBIN 13.8 gm/dL (14.0-18.0); LYMPHOCYTES 20.3 %; MCH 29.9 pg (26.0-34.0); MCHC 33.6 g/dL (28.0-37.0); MCV 88.8 fL (80.0-100.0); MONOCYTES 8.3 %; MPV 8.5 fl. (7.2-11.1); NUCLEATED RBCS 0 /100WBC; PLATELET COUNT* 379 thou/uL (150-400); POLYS 69.3 %; RBC 4.62 mil/uL (4.50-6.00); RDW-CV 14.1 % (10.5-14.5); WBC 7.4 thou/uL (4.0-11.0)
[2018-09-05 16:03] LABS: ANION GAP 11 mmol/L (7-16); BUN 16 mg/dL (7-18); CALCIUM 9.2 mg/dL (8.5-10.1); CHLORIDE 100 mmol/L (98-107); CO2 25 mmol/L (21-32); CREATININE 1.2 mg/dL (0.6-1.3); GLUCOSE 93 mg/dL (70-99); POTASSIUM 3.9 mmol/L (3.5-5.1); SODIUM 136 mmol/L (136-145)
[2018-09-05 16:10] LABS: ALBUMIN 3.7 g/dL (3.4-5.0); ALKALINE PHOSPHATASE 121 U/L (46-116); SGOT 28 U/L (15-37); SGPT 35 U/L (30-65); TOTAL BILIRUBIN 0.5 mg/dL (<0.1-1.0); TOTAL PROTEIN 7.5 g/dL (6.4-8.2); TROPONIN-I LEVEL <0.06 ng/mL (<0.06)
--- NOTE | 2018-09-05 16:52 | EKG ---
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 : 1980 Requested By: Dominick Lilly Order Number: [id number] MD: Dann Cai Measurements Intervals [place] Rate: 102 P: 24 VA: 129 QRS: -38 QRSD: 75 T: -9 QT: 330 QTc: 430 Interpretive Statements Sinus tachycardia Left axis deviation Nonspecific T abnormalities, inferior leads Compared to ECG 07/19/2018 22:15:21 Left-axis deviation now present T-wave abnormality now present Myocardial infarct finding no longer present Prolonged QT interval no longer present Electronically Signed On 09-05-2018 16:52:15 MACHINE I ENGRAVER by Dann Cai [email or web address] <ELECTRONICALLY SIGNED> By: Dann Cai MD, FACC 09/05/18 1652 1534 1534 Dann Cai MD, [facility] /EPI
[2018-09-05 21:00] VITALS: BP 97/71
[2018-09-05 23:00] VITALS: BP 117/73
[2018-09-06] VITALS (11 sets, daily range): BP systolic 96–157; BP diastolic 59–88
[2018-09-06 03:41] LABS: HEMATOCRIT 36.8 % (42.0-52.0); HEMOGLOBIN 12.1 gm/dL (14.0-18.0); MCH 29.6 pg (26.0-34.0); MCHC 32.8 g/dL (28.0-37.0); MCV 90.3 fL (80.0-100.0); MPV 8.4 fl. (7.2-11.1); RBC 4.08 mil/uL (4.50-6.00); RDW-CV 14.3 % (10.5-14.5); WBC 8.1 thou/uL (4.0-11.0)
[2018-09-06 03:51] LABS: ALBUMIN 3.1 g/dL (3.4-5.0); CALCIUM 8.3 mg/dL (8.5-10.1); CREATININE 1.1 mg/dL (0.6-1.3); MAGNESIUM 2.5 mg/dL (1.8-2.4); POTASSIUM 3.6 mmol/L (3.5-5.1); TOTAL BILIRUBIN 0.5 mg/dL (<0.1-1.0); TOTAL PROTEIN 6.2 g/dL (6.4-8.2)
[2018-09-06 20:05] LABS: URINE BILIRUBIN NEGATIVE (Negative); URINE BLOOD NEGATIVE (Negative); URINE CLARITY CLEAR; URINE COLOR YELLOW; URINE GLUCOSE-RANDOM NEGATIVE (Negative); URINE KETONES NEGATIVE (Negative); URINE LEUKOCYTES-REFLEX NEGATIVE (Negative); URINE NITRITE-REFLEX NEGATIVE (Negative); URINE PROTEIN NEGATIVE (Negative); URINE UROBILINOGEN 0.2 E.U./dl (0.2-1.0)
[2018-09-06 20:13] LABS: AMP/METHAMP Negative (Negative); BARBITURATES Negative (Negative); BENZODIAZEPINES Negative (Negative); COCAINE Negative (Negative); METHADONE Negative (Negative); OPIATES Negative (Negative); PCP Negative (Negative); THC Negative (Negative)
[2018-09-07] VITALS (22 sets, daily range): BP systolic 97–165; BP diastolic 51–101
[2018-09-07 04:43] LABS: ABSOLUTE BASOPHILS 0.1 thou/uL (0.0-0.2); ABSOLUTE EOSINOPHILS 0.2 thou/uL (0.0-0.7); ABSOLUTE LYMPHOCYTES 2.6 thou/uL (0.8-5.3); ABSOLUTE MONOCYTES 0.6 thou/uL (0.0-1.2); ABSOLUTE NEUTROPHILS 4.2 thou/uL (1.6-8.1); BASOPHILS 0.8 %; EOSINOPHILS 2.6 %; HEMATOCRIT 37.9 % (42.0-52.0); HEMOGLOBIN 12.4 gm/dL (14.0-18.0); LYMPHOCYTES 34.4 %; MCH 29.5 pg (26.0-34.0); MCHC 32.6 g/dL (28.0-37.0); MCV 90.3 fL (80.0-100.0); MONOCYTES 7.4 %; MPV 8.7 fl. (7.2-11.1); NUCLEATED RBCS 0 /100WBC; PLATELET COUNT* 346 thou/uL (150-400); POLYS 54.8 %; RBC 4.19 mil/uL (4.50-6.00); RDW-CV 14.2 % (10.5-14.5); WBC 7.6 thou/uL (4.0-11.0)
[2018-09-07 05:00] LABS: ALBUMIN 3.1 g/dL (3.4-5.0); CALCIUM 8.7 mg/dL (8.5-10.1); CREATININE 1.2 mg/dL (0.6-1.3); MAGNESIUM 2.2 mg/dL (1.8-2.4); PHOSPHORUS* 3.8 mg/dL (2.5-4.9); POTASSIUM 3.6 mmol/L (3.5-5.1); TOTAL BILIRUBIN 0.3 mg/dL (<0.1-1.0); TOTAL PROTEIN 6.3 g/dL (6.4-8.2)
[2018-09-07 05:36] LABS: ESR (SEDRATE) 11 mm/hr (0-15)
[2018-09-08] VITALS (24 sets, daily range): BP systolic 92–134; BP diastolic 44–96
[2018-09-08 02:28] LABS: HEMATOCRIT 37.1 % (42.0-52.0); HEMOGLOBIN 12.2 gm/dL (14.0-18.0); MCH 29.5 pg (26.0-34.0); MCHC 32.8 g/dL (28.0-37.0); MCV 89.9 fL (80.0-100.0); MPV 8.4 fl. (7.2-11.1); RBC 4.13 mil/uL (4.50-6.00); RDW-CV 14.2 % (10.5-14.5); WBC 7.4 thou/uL (4.0-11.0)
[2018-09-08 02:35] LABS: CALCIUM 9.5 mg/dL (8.5-10.1); CREATININE 1.2 mg/dL (0.6-1.3); MAGNESIUM 1.9 mg/dL (1.8-2.4); POTASSIUM 3.4 mmol/L (3.5-5.1)
[2018-09-09] VITALS (15 sets, daily range): BP systolic 92–130; BP diastolic 54–86
[2018-09-09 04:23] LABS: HEMATOCRIT 38.4 % (42.0-52.0); HEMOGLOBIN 12.5 gm/dL (14.0-18.0); MCH 29.5 pg (26.0-34.0); MCHC 32.7 g/dL (28.0-37.0); MCV 90.2 fL (80.0-100.0); MPV 9.1 fl. (7.2-11.1); RBC 4.25 mil/uL (4.50-6.00); RDW-CV 14.1 % (10.5-14.5); WBC 8.1 thou/uL (4.0-11.0)
[2018-09-09 04:36] LABS: ALBUMIN 3.5 g/dL (3.4-5.0); CALCIUM 9.3 mg/dL (8.5-10.1); CREATININE 1.2 mg/dL (0.6-1.3); MAGNESIUM 1.9 mg/dL (1.8-2.4); POTASSIUM 3.7 mmol/L (3.5-5.1); TOTAL BILIRUBIN 0.2 mg/dL (<0.1-1.0); TOTAL PROTEIN 6.9 g/dL (6.4-8.2)
[2018-09-10] VITALS: BP 131/82
[2018-09-10 04:00] VITALS: BP 96/69
[2018-09-10 09:35] VITALS: BP 136/97
[2018-09-10] MEDS ORDERED: KEPPRA1000 MG PO (11:42)
[2018-09-10 12:07] VITALS: BP 128/98
[2018-09-10 15:27] VITALS: BP 134/96
[2018-09-10 15:52] VITALS: BP 142/90
--- NOTE | 2018-09-13 12:03 | CON ---
[facility] [address] [place] [address] CONSULTATION Name: JOSH MONTERO Room: [address] IN M.R.#: [id number] Admission: 09/05/18 Attend Phys: Abraham Mya MD Discharge: 09/10/18 Date of : 82 Report #: [id number] THIS REPORT FOR: //name// CC: FAM unknown Abraham May MD [facility] DATE OF SERVICE: 09/06/2018 REFERRING PHYSICIAN: Abraham May M.D. REASON FOR CONSULTATION: Hematemesis. IMPRESSION: 1. Overt hematemesis of uncertain etiology - evaluate for reflux versus [place] versus peptic ulcer versus less likely portal hypertension. 2. Chronic alcohol abuse with continued use. 3. History of alcohol withdrawal seizures. 4. Polysubstance abuse including both alcohol and methamphetamine abuse. RECOMMENDATIONS: The patient appears to be hemodynamically stable, we will proceed with upper endoscopy today and make further recommendations thereafter. I have discussed the plans with the patient as well and he is agreeable to the same. HISTORY OF PRESENT ILLNESS: This is a 38-year-old white male alcoholic, who presented to the Emergency Room after having had a seizure. He has also been going through some withdrawal and has been on medications for the same. He was supposed to be taking Keppra but ran out of it and because of this, he started bingeing on alcohol. His last drink was 24 hours prior to admission. He states he has been having nausea, vomiting and had a scant hematemesis. There has not been any overt hematemesis. He denies any problem with heartburn or indigestion. He has not had any black stools or tarry stools suggestive of melena. He has not had any abdominal pain. He is wanting to undergo inpatient detox and rehab for alcohol. He was admitted to hospital for further evaluation and treatment. ALLERGIES: To DIPHENHYDRAMINE. MEDICATIONS: Supposed to be Keppra, trazodone, Zyprexa, Norvasc, Protonix and prazosin but it is unclear what he is taking. PAST MEDICAL AND PAST SURGICAL HISTORY: Alcohol withdrawal seizures, chronic alcoholism, chronic reflux. He has bipolar disorder. He has had a liver laceration in the past, the details of which are [place] clear[place] [address] CONSULTATION Name: JOSH MONTERO Room: [address]#: [id number] Admission: 09/05/18 Attend Phys: Abraham May MD Discharge: 09/10/18 Date of : 82 Report #: [id number] happened in April of this year. SOCIAL HISTORY: The patient uses meth and drinks three, fourth, fifth of vodka daily. Does smoke on a daily basis. FAMILY HISTORY: Remarkable for alcoholism. PHYSICAL EXAMINATION: GENERAL: Revealed a pza-zve-tcskphcag 38-year-old white male who is awake and alert. CARDIOPULMONARY: Revealed a regular rate and rhythm. LUNGS: Clear. ABDOMEN: He apparently did not have signs or symptoms to suggest he is having major alcohol withdrawal. LABORATORY DATA: From admission revealed white count 8.1; hemoglobin 12.1; platelet count 325,000; MCV is 90.3 and RDW is 14.3. His sodium is 138, potassium 3.6, chloride 104, bicarbonate 26, BUN 15 and creatinine 1.1. Total bilirubin 0.5, alkaline phosphatase is 98, his AST is 22, ALT is 30 and his albumin is 3.1. His INR is 1.0. DISCUSSION: At the present time, the patient had problems with overt hematemesis. We will proceed with upper endoscopy today and make further recommendations. <ELECTRONICALLY SIGNED> By: Danny Nicole DO 09/13/18 1203 1104 0230Danny Nicole DO /nt
== END 2018-09-10 16:45 | disposition home or self-care (01) | DRG 100 ==
LOC: M.ERS 14:37 → M.ICU 17:32 → M.TBA-ER 17:32 → M.ICU 17:32 → M.3W 09-09 15:06
PROVIDERS: Emergency Medicine Emergency Medical Services; Family Medicine; Internal Medicine Gastroenterology; ADMIT Internal Medicine
PROC: 05H533Z Insertion of Infusion Device into Right Subclavian Vein, Percutaneous Approach (ICD-10-PCS; principal; 2018-09-05)
PROC: 0DJ08ZZ Inspection of Upper Intestinal Tract, Via Natural or Artificial Opening Endoscopic (ICD-10-PCS; 2018-09-06)
DX: G40.509 Epileptic seizures related to external causes, not intractable, without status epilepticus (principal); K29.21 Alcoholic gastritis with bleeding; F10.230 Alcohol dependence with withdrawal, uncomplicated; K82.0 Obstruction of gallbladder; I10 Essential (primary) hypertension; F15.10 Other stimulant abuse, uncomplicated; E87.6 Hypokalemia; G93.81 Temporal sclerosis; K21.0 Gastro-esophageal reflux disease with esophagitis; F31.9 Bipolar disorder, unspecified; Z91.14 Patient's other noncompliance with medication regimen; Z79.899 Other long term (current) drug therapy; Z88.8 Allergy status to other drugs, medicaments and biological substances; Z81.1 Family history of alcohol abuse and dependence

== ENCOUNTER 2018-11-22 15:45 | Inpatient (IN) | payer MEDICAID ==
[~2018-11-22] VITALS: Ht 177.8 cm; Wt 92.1 kg
[2018-11-22 16:13] VITALS: BP 166/123
[2018-11-22 17:06] LABS: URINE BILIRUBIN NEGATIVE (Negative); URINE BLOOD NEGATIVE (Negative); URINE CLARITY CLEAR; URINE COLOR YELLOW; URINE GLUCOSE-RANDOM NEGATIVE (Negative); URINE KETONES NEGATIVE (Negative); URINE LEUKOCYTES-REFLEX NEGATIVE (Negative); URINE NITRITE-REFLEX NEGATIVE (Negative); URINE PROTEIN TRACE (Negative); URINE UROBILINOGEN 0.2 E.U./dl (0.2-1.0)
[2018-11-22 17:13] LABS: AMP/METHAMP Negative (Negative); BARBITURATES Negative (Negative); BENZODIAZEPINES POSITIVE (Negative); COCAINE Negative (Negative); METHADONE Negative (Negative); OPIATES Negative (Negative); PCP Negative (Negative); THC Negative (Negative)
[2018-11-22 17:55] LABS: ABSOLUTE BASOPHILS 0.1 thou/uL (0.0-0.2); ABSOLUTE LYMPHOCYTES 1.4 thou/uL (0.8-5.3); ABSOLUTE MONOCYTES 0.6 thou/uL (0.0-1.2); ABSOLUTE NEUTROPHILS 6.9 thou/uL (1.6-8.1); BASOPHILS 0.7 %; HEMATOCRIT 40.9 % (42.0-52.0); HEMOGLOBIN 13.5 gm/dL (14.0-18.0); LYMPHOCYTES 16.1 %; MCH 27.6 pg (26.0-34.0); MCHC 33.1 g/dL (28.0-37.0); MCV 83.4 fL (80.0-100.0); MONOCYTES 6.6 %; MPV 8.5 fl. (7.2-11.1); NUCLEATED RBCS 0 /100WBC; PLATELET COUNT* 355 thou/uL (150-400); POLYS 76.6 %; RDW-CV 16.2 % (10.5-14.5)
[2018-11-22 18:12] LABS: ALBUMIN 3.9 g/dL (3.4-5.0); CALCIUM 8.4 mg/dL (8.5-10.1); CREATININE 1.3 mg/dL (0.6-1.3); MAGNESIUM 1.8 mg/dL (1.8-2.4); TOTAL BILIRUBIN 0.6 mg/dL (<0.1-1.0); TOTAL PROTEIN 7.2 g/dL (6.4-8.2)
[2018-11-22 21:20] VITALS: BP 149/98
[2018-11-22 22:00] VITALS: BP 177/52
[2018-11-22 22:30] VITALS: BP 154/96
[2018-11-22 23:00] VITALS: BP 133/100
[2018-11-22 23:30] VITALS: BP 141/102
[2018-11-23] VITALS (22 sets, daily range): BP systolic 108–139; BP diastolic 59–103
[2018-11-23 04:08] LABS: CALCIUM 7.8 mg/dL (8.5-10.1); CREATININE 1.1 mg/dL (0.6-1.3); POTASSIUM 3.5 mmol/L (3.5-5.1)
[2018-11-23 04:15] LABS: ABSOLUTE EOSINOPHILS 0.1 thou/uL (0.0-0.7); ABSOLUTE LYMPHOCYTES 2.6 thou/uL (0.8-5.3); ABSOLUTE MONOCYTES 0.6 thou/uL (0.0-1.2); ABSOLUTE NEUTROPHILS 3.8 thou/uL (1.6-8.1); BASOPHILS 0.5 %; EOSINOPHILS 0.8 %; HEMATOCRIT 37.1 % (42.0-52.0); HEMOGLOBIN 12.2 gm/dL (14.0-18.0); LYMPHOCYTES 37.2 %; MCH 27.7 pg (26.0-34.0); MCHC 32.8 g/dL (28.0-37.0); MCV 84.3 fL (80.0-100.0); MONOCYTES 8.4 %; MPV 8.9 fl. (7.2-11.1); NUCLEATED RBCS 0 /100WBC; PLATELET COUNT* 290 thou/uL (150-400); POLYS 53.1 %; RDW-CV 16.4 % (10.5-14.5); WBC 7.1 thou/uL (4.0-11.0)
[2018-11-23 06:18] LABS: MAGNESIUM 2.3 mg/dL (1.8-2.4); PHOSPHORUS* 3.4 mg/dL (2.5-4.9)
--- NOTE | 2018-11-23 10:42 | EKG ---
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
[2018-11-24] VITALS (14 sets, daily range): BP systolic 97–145; BP diastolic 48–106
[2018-11-24 05:26] LABS: ABSOLUTE EOSINOPHILS 0.1 thou/uL (0.0-0.7); ABSOLUTE LYMPHOCYTES 2.1 thou/uL (0.8-5.3); ABSOLUTE MONOCYTES 0.5 thou/uL (0.0-1.2); ABSOLUTE NEUTROPHILS 3.4 thou/uL (1.6-8.1); BASOPHILS 0.4 %; EOSINOPHILS 2.2 %; HEMOGLOBIN 11.2 gm/dL (14.0-18.0); LYMPHOCYTES 34.5 %; MCH 27.3 pg (26.0-34.0); MCHC 32.1 g/dL (28.0-37.0); MCV 85.1 fL (80.0-100.0); MONOCYTES 7.8 %; MPV 9.2 fl. (7.2-11.1); NUCLEATED RBCS 0 /100WBC; PLATELET COUNT* 264 thou/uL (150-400); POLYS 55.1 %; RBC 4.11 mil/uL (4.50-6.00); RDW-CV 16.2 % (10.5-14.5); WBC 6.2 thou/uL (4.0-11.0)
[2018-11-24 05:37] LABS: CALCIUM 7.5 mg/dL (8.5-10.1); MAGNESIUM 2.6 mg/dL (1.8-2.4); PHOSPHORUS* 3.3 mg/dL (2.5-4.9); POTASSIUM 3.5 mmol/L (3.5-5.1)
[2018-11-25 08:00] VITALS: BP 131/99
[2018-11-25 11:57] VITALS: BP 131/99
[2018-11-25 16:15] VITALS: BP 146/98
[2018-11-25 20:00] VITALS: BP 147/103
[2018-11-26 08:00] VITALS: BP 144/98
[2018-11-26 11:02] VITALS: BP 124/75
[2018-11-26 16:16] VITALS: BP 131/104
[2018-11-26 17:00] VITALS: BP 124/75
== END 2018-11-26 17:00 | disposition home or self-care (01) | DRG 92 ==
LOC: M.ERS 15:45 → M.TBA-ER 18:18 → M.ICU 18:18 → M.3W 11-24 12:58
PROVIDERS: Physician Assistant; ADMIT Internal Medicine
PROC: 02HV33Z Insertion of Infusion Device into Superior Vena Cava, Percutaneous Approach (ICD-10-PCS; principal; 2018-11-22)
DX: G92 Toxic encephalopathy (principal); R45.851 Suicidal ideations; F10.231 Alcohol dependence with withdrawal delirium; I10 Essential (primary) hypertension; F31.9 Bipolar disorder, unspecified; G40.909 Epilepsy, unspecified, not intractable, without status epilepticus; F41.9 Anxiety disorder, unspecified; E86.0 Dehydration; F17.210 Nicotine dependence, cigarettes, uncomplicated; Z79.899 Other long term (current) drug therapy; Z88.8 Allergy status to other drugs, medicaments and biological substances

== ENCOUNTER 2019-07-09 14:53 | Inpatient (IN) | payer OTHER ==
[~2019-07-09] VITALS: Ht 177.8 cm; Wt 99.9 kg
--- NOTE | ~2019-07-09 | PROC ---
[address] [address] PROCEDURE REPORT Name: JOSH MONTERO Room: [address] IN M.R.#: [id number] Admission: 07/09/19 Attend Phys: Susana mcintyre Placida Discharge: 07/15/19 Date of : 82 Report #: [id number] THIS REPORT FOR: //name// For GI report, please see the Provation report in Perceptive 7 content. By: 0646Medical Records Staff LE /BEBA
[2019-07-09 14:59] VITALS: BP 175/135
[2019-07-09 15:54] LABS: ABSOLUTE LYMPHOCYTES 1.9 thou/uL (0.8-5.3); ABSOLUTE MONOCYTES 0.5 thou/uL (0.0-1.2); ABSOLUTE NEUTROPHILS 2.6 thou/uL (1.6-8.1); BASOPHILS 0.7 %; EOSINOPHILS 0.2 %; HEMATOCRIT 43.3 % (42.0-52.0); HEMOGLOBIN 14.6 gm/dL (14.0-18.0); LYMPHOCYTES 38.2 %; MCHC 33.8 g/dL (28.0-37.0); MCV 88.9 fL (80.0-100.0); MONOCYTES 10.8 %; NUCLEATED RBCS 0 /100WBC; PLATELET COUNT* 379 thou/uL (150-400); POLYS 50.1 %; RBC 4.88 mil/uL (4.50-6.00); RDW-CV 15.1 % (10.5-14.5); WBC 5.1 thou/uL (4.0-11.0)
[2019-07-09 15:59] LABS: CALCIUM 8.2 mg/dL (8.5-10.1); CREATININE 1.3 mg/dL (0.6-1.3)
[2019-07-09 16:02] LABS: AMMONIA 34 umol/L (11-32)
[2019-07-09 16:08] LABS: ALBUMIN 3.8 g/dL (3.4-5.0); TOTAL BILIRUBIN 0.7 mg/dL (<0.1-1.0); TOTAL PROTEIN 7.7 g/dL (6.4-8.2)
[2019-07-09 16:14] LABS: INR 1.1; PROTIME 10.8 Seconds (9.20-11.50)
[2019-07-09 16:29] LABS: MAGNESIUM 1.9 mg/dL (1.8-2.4); PHOSPHORUS* 2.6 mg/dL (2.5-4.9)
[2019-07-09 17:08] LABS: URINE BILIRUBIN NEGATIVE (Negative); URINE BLOOD NEGATIVE (Negative); URINE CLARITY CLEAR; URINE COLOR YELLOW; URINE GLUCOSE-RANDOM NEGATIVE (Negative); URINE KETONES NEGATIVE (Negative); URINE LEUKOCYTES-REFLEX NEGATIVE (Negative); URINE NITRITE-REFLEX NEGATIVE (Negative); URINE PROTEIN 1+ (Negative); URINE SPECIFIC GRAVITY 1.015 (1.005-1.030); URINE UROBILINOGEN 0.2 E.U./dl (0.2-1.0)
[2019-07-09 17:27] LABS: AMP/METHAMP Negative (Negative); BARBITURATES Negative (Negative); BENZODIAZEPINES Negative (Negative); COCAINE Negative (Negative); METHADONE Negative (Negative); OPIATES Negative (Negative); PCP Negative (Negative); THC Negative (Negative)
[2019-07-09 19:40] VITALS: BP 158/111
[2019-07-09 19:50] VITALS: BP 136/86
[2019-07-10] VITALS (7 sets, daily range): BP systolic 122–157; BP diastolic 89–113
[2019-07-10 05:49] LABS: INR 1.1; PROTIME 11.5 Seconds (9.20-11.50)
--- NOTE | 2019-07-10 05:55 | NUR ---
RECEIVED REPORT FROM NEON ELECTRICIAN AT 1930. PT ARRIVED TO UNIT AT 1940. PT AAOX4, ORIENTED TO ROOM AND CALL LIGHT. 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 PT C/O ALCOHOL W/D SYMTOMS. MEDICATIONS ADMINISTERED, SEE EMAR FOR DOCUMENTATION. IVF INFUSING. HIGH FALL PRECAUTIONS IN PLACE, SEIZURE PRECAUTIONS IN PLACE. CALL LIGHT WITHIN REACH.
[2019-07-10 06:18] LABS: ALBUMIN 3.5 g/dL (3.4-5.0); CALCIUM 7.8 mg/dL (8.5-10.1); CREATININE 1.3 mg/dL (0.6-1.3); POTASSIUM 3.3 mmol/L (3.5-5.1); TOTAL BILIRUBIN 0.9 mg/dL (<0.1-1.0); TOTAL PROTEIN 6.9 g/dL (6.4-8.2)
--- NOTE | 2019-07-10 15:58 | NUR ---
Pt is A&O. Pt states that he has either been staying with his mom or at the [facility], plans to dc to his mom's for a while post hospital stay. CM spoke with Tamara from [facility], Pt's ANSELMO recently lapsed, Tamara was able to screen Pt over the phone, CM had Pt sign necessary forms and faxed back to [facility]. No DME. No hx of HH or SNF. Following.
--- NOTE | 2019-07-10 18:34 | NUR ---
ASSUMED PT CARE AT 0730, FULL ASSESMENT DONE CHARTED. PT DROWSY, ORIENTED X4, VSS, SR ON THE MONITOR. REMIANS IN ISOLATION DUE TO HX OF CDIFF IN THE PAST YEAR REPORTED BY THE PT. PT UP WITH ASSIST, ALCOHOL WITHDRAWL. PT APPROPRIATE, RESTING MOST OF THIS SHIFT. FALL PRECAUTIONS IN PLACE, WILL CONTINUE TO MONITOR.
[2019-07-11 03:45] VITALS: BP 147/107
--- NOTE | 2019-07-11 05:32 | NUR ---
PT HAS RESTED T/O NIGHT WITH MINIMAL SYMPTOMS OF WITHDRAWAL.PT BP INCREASED FOR 0000 AND 0400 VITALS. ATIVAN GIVEN PER DIRECTION.PT IS STILL ON RA. TELE SHOWS SR. MEDS GIVEN PER EMAR. PT PROGRESSING TOWARDS GOALS. CALL LIGHT WITHIN REACH
[2019-07-11 07:00] VITALS: BP 124/83
[2019-07-11 08:00] VITALS: BP 124/83
[2019-07-11 09:21] LABS: HEMATOCRIT 41.3 % (42.0-52.0); HEMOGLOBIN 13.7 gm/dL (14.0-18.0); MCH 30.5 pg (26.0-34.0); MCHC 33.1 g/dL (28.0-37.0); MCV 92.3 fL (80.0-100.0); RBC 4.48 mil/uL (4.50-6.00); RDW-CV 15.5 % (10.5-14.5)
[2019-07-11 09:48] LABS: MAGNESIUM 1.8 mg/dL (1.8-2.4); PHOSPHORUS* 1.8 mg/dL (2.5-4.9)
[2019-07-11 10:02] LABS: CALCIUM 7.7 mg/dL (8.5-10.1); POTASSIUM 3.6 mmol/L (3.5-5.1); TOTAL BILIRUBIN 0.6 mg/dL (<0.1-1.0); TOTAL PROTEIN 6.4 g/dL (6.4-8.2)
[2019-07-11 10:30] VITALS: BP 124/83
[2019-07-11 16:39] VITALS: BP 173/122
--- NOTE | 2019-07-11 18:16 | NUR ---
PT VSS WITH EXCEPTION OF HYPERTENSION. SR ON TELE, PT OREINTEDX4 BUT RESTING MOST OF THE DAY. AWAS ETOH PATIENT. STAND BY ASSIST, SEIZURE PRECAUTIONS IN PLACE. POSSESSIONS AND CALL LIGHT WITHIN REACH. HOURLY ROUNDING PERFORMED. CLEAR LIQUID DIET, NPO AT MIDNIGHT, COLONOSCOPY TOMORROW.
[2019-07-12 00:09] VITALS: BP 163/87
[2019-07-12 04:30] VITALS: BP 132/100
--- NOTE | 2019-07-12 04:32 | NUR ---
ASSUMED PATIENT CARE AT 1900. ASSESSMENT COMPLETED CHARTED. VSS. PATIENT IS NORMAL SINUS RHYTHM ON THE MONITOR. HOURLY ROUNDING IN PLACE FOR PATIENT SAFETY. CLWR.
[2019-07-12 04:44] LABS: ABSOLUTE BASOPHILS 0.1 thou/uL (0.0-0.2); ABSOLUTE EOSINOPHILS 0.4 thou/uL (0.0-0.7); ABSOLUTE LYMPHOCYTES 2.3 thou/uL (0.8-5.3); ABSOLUTE MONOCYTES 0.7 thou/uL (0.0-1.2); ABSOLUTE NEUTROPHILS 5.8 thou/uL (1.6-8.1); BASOPHILS 0.9 %; EOSINOPHILS 3.9 %; HEMATOCRIT 38.6 % (42.0-52.0); HEMOGLOBIN 12.8 gm/dL (14.0-18.0); LYMPHOCYTES 24.6 %; MCH 30.1 pg (26.0-34.0); MCHC 33.3 g/dL (28.0-37.0); MCV 90.5 fL (80.0-100.0); MONOCYTES 7.3 %; MPV 8.4 fl. (7.2-11.1); NUCLEATED RBCS 0 /100WBC; PLATELET COUNT* 276 thou/uL (150-400); POLYS 63.3 %; RBC 4.26 mil/uL (4.50-6.00); RDW-CV 15.3 % (10.5-14.5); WBC 9.2 thou/uL (4.0-11.0)
[2019-07-12 04:58] LABS: CREATININE 1.1 mg/dL (0.6-1.3); POTASSIUM 3.1 mmol/L (3.5-5.1)
[2019-07-12 07:00] VITALS: BP 132/93
[2019-07-12 15:24] VITALS: BP 153/115
[2019-07-12 18:06] LABS: HEPATITIS B SURFACE AG Negative (Negative)
[2019-07-12 20:00] VITALS: BP 137/95
[2019-07-13] VITALS: BP 134/97
[2019-07-13 04:00] VITALS: BP 122/81
[2019-07-13 05:09] LABS: HEMATOCRIT 34.8 % (42.0-52.0); HEMOGLOBIN 11.7 gm/dL (14.0-18.0); MCH 30.5 pg (26.0-34.0); MCHC 33.5 g/dL (28.0-37.0); MPV 8.7 fl. (7.2-11.1); RBC 3.82 mil/uL (4.50-6.00); RDW-CV 15.1 % (10.5-14.5); WBC 8.9 thou/uL (4.0-11.0)
[2019-07-13 05:22] LABS: CALCIUM 7.7 mg/dL (8.5-10.1); CREATININE 1.1 mg/dL (0.6-1.3); POTASSIUM 3.5 mmol/L (3.5-5.1)
--- NOTE | 2019-07-13 05:27 | NUR ---
ASSUMED CARE OF PT AFTER REPORT AT 1930. PT A&OX4. VSS. PHYSICAL ASSESSMENT COMPLETED AND CHARTED. PT ON RA. PT TRACING SR ON TELE. PT UP STANDBY TO RESTROOM. CIWAS CHARTED. PT DENIES ANY PAIN OR DISCOMFORT. PT ABLE TO SLEEP WELL ON BED. CALL LIGHT WITHIN REACH.
[2019-07-13 12:24] VITALS: BP 146/97
[2019-07-13 16:22] VITALS: BP 144/107
--- NOTE | 2019-07-13 18:51 | NUR ---
ASSUMED PT CARE AT 0700, PT A&O X4, RA, REGISTERED RADIOLOGIC TECHNOLOGIST TRACING SINUS RHYTHM, PT HYPERTENSIVE AT TIMES, DR GILLESPIE NOTIFIED, NO NEW ORDERS RECVD. CIWAS=2 PT C/O BLURRED VISION AT TIMES, APPEARS STEADY ON HIS FEET BUT REMAINS STANDBY ASSIST FOR SAFETY. HOURLY ROUNDING COMPLETED.
[2019-07-13 20:00] VITALS: BP 149/98
[2019-07-14] VITALS: BP 143/97
[2019-07-14 04:00] VITALS: BP 138/102
--- NOTE | 2019-07-14 05:48 | NUR ---
ASSUMED CARE OF PT AFTER REPORT AT 1930. PT A&OX4. VSS. PHYSICAL ASSESSMENT COMPLETED AND CHARTED. PT ON RA. PT TRACING SR/ST ON TELE. PT UPSTANDBY TO RESTROOM. PT DENIES ANY PAIN OR DISCOMFORT. NO EPISODE OF DIARRHEA. CIWA CHARTED. PT ABLE TO SLEEP WELL ON BED. CALL LIGHT WITHIN REACH.
[2019-07-14] MEDS ORDERED: ZESTRIL10 MG PO (10:55)
[2019-07-14] MEDS ORDERED: FIRVANQ50 MG/1 ML PO (10:55)
[2019-07-14 12:56] VITALS: BP 149/121
[2019-07-14 14:00] LABS: HEMATOCRIT 37.6 % (42.0-52.0); HEMOGLOBIN 12.7 gm/dL (14.0-18.0); MCHC 33.9 g/dL (28.0-37.0); MCV 91.5 fL (80.0-100.0); MPV 8.8 fl. (7.2-11.1); RBC 4.11 mil/uL (4.50-6.00); RDW-CV 15.8 % (10.5-14.5); WBC 7.9 thou/uL (4.0-11.0)
[2019-07-14 14:17] LABS: ALBUMIN 3.2 g/dL (3.4-5.0); CREATININE 1.3 mg/dL (0.6-1.3); POTASSIUM 3.7 mmol/L (3.5-5.1); TOTAL BILIRUBIN 0.2 mg/dL (<0.1-1.0); TOTAL PROTEIN 6.8 g/dL (6.4-8.2)
--- NOTE | 2019-07-14 18:05 | NUR ---
ASSUMED PT CARE AT 0700, PT A&O X4, VSS, CARDIAC MONITORING SINUS RHYTHM, FULL ASSESSMENT CHARTED. PT REMAINS STAND BY ASSIST, CIWAS=2, DENIES ANY PAIN OR SOA. HOURLY ROUNDING COMPLETED, CONTACT ISOLATION IN PLACE.
[2019-07-14 20:00] VITALS: BP 131/97
[2019-07-15] VITALS: BP 150/100
[2019-07-15 04:00] VITALS: BP 113/80
--- NOTE | 2019-07-15 05:48 | NUR ---
ASSUMED CARE OF PT AFTER REPORT AT 1930. PT A&OX4. VSS. PHYSICAL ASSESSMENT COMPLETED AMD CHARTED. PT ON RA. PT TRACING SR/ST ON TELE. PT UPSTANDBY TO RESTROOM. PT DENIES ANY PAIN OR DISCOMFORT. CIWA CHARTED. PT ABLE TO SLEEP WELL ON BED. SEIZURE PRECAUTION IN PLACE. CALL LIGHT WITHIN REACH.
[2019-07-15 07:05] VITALS: BP 130/95
--- NOTE | 2019-07-15 09:36 | NUR ---
INITAL ASSESSMENT COMPLETED CHARTED. VSS. TRACING NSR ON MONITOR. PT DENIES PAIN, CP, SOA, N/V/D. PT DNEIES ANY FURTHER NEEDS AT THIS TIME. HOURLY ROUNDING IN PLACE FOR PT SAFETY. CLWR.
--- NOTE | 2019-07-15 09:43 | NUR ---
Pt to dc to home today. BRANDON received approval for [facility] to pay for Pt's oral vanc. With the Good Rx coupon, the cost will be $394.90. BRANDON faxed facesheet, Rx and coupon to [facility] on [address] to [phone]. BRANDON informed Pt that he will need to pick it up at [facility], nurse to reiterate at tx. Updated
[2019-07-15 09:56] VITALS: BP 130/95
[2019-07-15 10:00] VITALS: BP 130/95
[2019-07-15 12:45] VITALS: BP 149/98
--- NOTE | 2019-07-15 14:51 | NUR ---
DISCUSSED WITH SW FOR SETUP FOR HOME VANCOMYCIN.
--- NOTE | 2019-07-16 13:07 | PATH ---
[facility] [address] [place] [address] PATHOLOGY RPT PROCEDURE Name: JOSH MONTERO Room: [address] IN .R.#: [id number] Admission: 07/09/19 Date of : 82 Discharge: 07/15/19 Report #: [id number] Path Case #: [id number] [facility] Accession Number: [id number] . 01 Material submitted: . colon - COLON BIOPSY . 01 Clinical history: . Biopsy for microscopic colitis . 02 Diagnosis: Colon biopsy: - Focal fresh hemorrhage in otherwise normal colonic mucosa. (GUICHO:becca; 07/16/2019) S 07/16/2019 1123 Local . 02 Electronically signed: . Mainor Irvin MD, Pathologist NPI- [id number] . 01 Gross description: . Received in formalin labeled "Josh Montero, colon biopsy for microscopic colitis," are multiple segments of scott-brown soft tissue measuring 1.2 x 0.5 x 0.2 cm in aggregate dimensions and ranging from 0.3 to 0.6 cm in maximum dimension. The specimen is submitted entirely in cassette A1. (DAC; 07/15/2019) XDC/XDC 07/15/2019 0922 Local . 02 Pathologist provided ICD-10: F10.239, Z03.89 . 02 CPT . 860028 Specimen Comment: A courtesy copy of this report has been sent to [phone] Specimen Comment: [phone] Specimen Comment: Report sent to / DR BARTLETT Performed at: [address], [place], [place] [id number] MD Mainor Posey MD Phone: [phone] Performed at: [address] [facility] [address], [place], [place] [id number] MD Mainor Irvin MD Phone: [phone]
--- NOTE | 2019-07-28 23:11 | CON ---
[address] [address] CONSULTATION Name: JOSH MONTERO Room: [address] IN M.R.#: [id number] Admission: 07/09/19 Attend Phys: Susana Amor Discharge: 07/15/19 Date of : 82 Report #: [id number] THIS REPORT FOR: //name// CC: FAM unknown Susana Atwood DATE OF SERVICE: 07/11/2019 REASON FOR CONSULTATION: Recurrent nausea, vomiting, and abdominal pain. IMPRESSION: 1. Recurrent nausea, vomiting, and scant hematemesis -- evaluate for problems related to the same. 2. Diffuse abdominal pain associated with bloody diarrhea -- evaluate for some form of colitis. 3. Chronic alcohol abuse with continued alcohol abuse and alcohol-related seizures. 4. Bipolar disorder with poor followup as an outpatient. RECOMMENDATIONS: Due to the patient's complaints of nausea, vomiting, hematemesis, we will proceed with upper endoscopy today. If all this is unremarkable, we will proceed with bowel preparation in anticipation of colonoscopy to be done tomorrow to evaluate complaints of lower abdominal pain and bloody diarrhea. I have discussed the plans with the patient as well and he is agreeable to the same. HISTORY OF PRESENT ILLNESS: The patient is a 39-year-old white male, well known to me from previous admission back in August 2018 when he was admitted to the hospital with similar type issues. He is admitted to the hospital with complaints of alcohol withdrawal symptoms with associated hand shaking, intractable emesis, seizures. The patient states his last drink was less than 6 hours ago. He was unable to consume more alcohol due to nausea, vomiting, hematemesis, and loose stools with some associated blood. He states he had been sober for the last 6 months, but relapsed to being laid off and losing his apartment. He lives in a homeless half-way at this time. He has no other issues at this time. ALLERGIES: None. MEDICATIONS AT HOME: He is supposed to be on Keppra, trazodone, Zyprexa, Norvasc, Protonix, and prazosin. PAST MEDICAL HISTORY: Remarkable for underlying history of alcohol abuse with history of alcohol withdrawal seizures, bipolar disorder with schizophrenia. SOCIAL HISTORY: The patient has a history of previous [place] [address] CONSULTATION Name: MONTEROJOSH N Room: [address]#: [id number] Admission: 07/09/19 Attend Phys: Susana Amor Discharge: 07/15/19 Date of : 82 Report #: [id number] drinking vodka on a daily basis. He does smoke as well. FAMILY HISTORY: Remarkable for alcoholism. PHYSICAL EXAMINATION: GENERAL: Revealed a yor-mdt-qmtwleduk 39-year-old gentleman who is awake and alert. CARDIOPULMONARY: Revealed a regular rate and rhythm. LUNGS: Clear. ABDOMEN: Soft, diffusely tender. No rebound or guarding noted. LABORATORY DATA: From the Emergency Room revealed a white count of 5.1, hemoglobin 14.6, platelet count 379,000, MCV is 88.9, RDW 15.1. Sodium 140, potassium 3.0, chloride 99, bicarbonate 28, BUN 8, creatinine 1.3. His GFR is 62. Total bilirubin is 0.7, alkaline phosphatase 97, AST is 45, ALT 55, albumin is 3.8. His INR is 1.1. DISCUSSION: At the present time, the patient appears to be an adequate candidate to undergo endoscopic evaluation. We will proceed with upper endoscopy today and make further recommendations thereafter. <ELECTRONICALLY SIGNED> By: Danny Nicole DO 07/28/19 2311 1458 1517Danny Nicole DO /nt
== END 2019-07-15 14:41 | disposition home or self-care (01) | DRG 381 ==
LOC: M.ERS 14:53 → M.2W 16:33 → M.TBA-ER 16:33 → M.2W 19:40
PROVIDERS: Emergency Medicine; Internal Medicine; Internal Medicine Gastroenterology; ADMIT Family Medicine
PROC: 0DJ08ZZ Inspection of Upper Intestinal Tract, Via Natural or Artificial Opening Endoscopic (ICD-10-PCS; principal; 2019-07-11)
DX: K22.11 Ulcer of esophagus with bleeding (principal); E72.20 Disorder of urea cycle metabolism, unspecified; A04.72 Enterocolitis due to Clostridium difficile, not specified as recurrent; I10 Essential (primary) hypertension; F31.9 Bipolar disorder, unspecified; G40.909 Epilepsy, unspecified, not intractable, without status epilepticus; G93.81 Temporal sclerosis; F20.9 Schizophrenia, unspecified; E87.6 Hypokalemia; F10.10 Alcohol abuse, uncomplicated; K21.0 Gastro-esophageal reflux disease with esophagitis; K31.89 Other diseases of stomach and duodenum; Y90.9 Presence of alcohol in blood, level not specified; Z79.899 Other long term (current) drug therapy; Z88.8 Allergy status to other drugs, medicaments and biological substances; Z87.891 Personal history of nicotine dependence; Z59.0 Homelessness

== ENCOUNTER 2020-05-27 22:18 | Inpatient (IN) | payer MEDICAID ==
[~2020-05-27] VITALS: Ht 177.8 cm; Wt 100.2 kg
[~2020-05-27 22:18] MED LIST changes: +FIRVANQ50 MG/1 ML PO; +ZESTRIL10 MG PO
[2020-05-27 22:41] VITALS: BP 148/121
--- NOTE | 2020-05-27 23:00 | NUR ---
PATIENT REPORTS HE HAS BEEN A PAST USER OF IV DRUGS AND HAS DIFFICULT VIENS. MULTIPLE ATTEMPTS HAVE BEEN MADE TO ESTABLISH IV ACCESS WITH OUT SUCCESS. DR BLAIR NOTIFIED.
[2020-05-27 23:42] LABS: HEMOGLOBIN 15.7 gm/dL (14.0-18.0); NUCLEATED RBCS 0 /100WBC
[2020-05-27 23:44] LABS: ABSOLUTE BASOPHILS 0.1 thou/uL (0.0-0.2); ABSOLUTE EOSINOPHILS 0.3 thou/uL (0.0-0.7); ABSOLUTE MONOCYTES 0.9 thou/uL (0.0-1.2); ABSOLUTE NEUTROPHILS 3.6 thou/uL (1.6-8.1); BASOPHILS 0.9 %; HEMATOCRIT 47.4 % (42.0-52.0); LYMPHOCYTES 28.8 %; MCH 29.7 pg (26.0-34.0); MCHC 33.1 g/dL (28.0-37.0); MCV 89.6 fL (80.0-100.0); MONOCYTES 12.7 %; MPV 8.4 fl. (7.2-11.1); PLATELET COUNT* 298 thou/uL (150-400); POLYS 53.6 %; RBC 5.29 mil/uL (4.50-6.00); RDW-CV 16.6 % (10.5-14.5); WBC 6.8 thou/uL (4.0-11.0)
[2020-05-27 23:53] LABS: CALCIUM 9.1 mg/dL (8.5-10.1); CREATININE 1.4 mg/dL (0.6-1.3); POTASSIUM 3.9 mmol/L (3.5-5.1)
[2020-05-28] VITALS (21 sets, daily range): BP systolic 65–142; BP diastolic 38–99
[2020-05-28 00:04] LABS: ALBUMIN 4.1 g/dL (3.4-5.0); MAGNESIUM 2.1 mg/dL (1.8-2.4); TOTAL BILIRUBIN 0.5 mg/dL (<0.1-1.0); TOTAL PROTEIN 8.3 g/dL (6.4-8.2)
[2020-05-28 00:52] LABS: PROTIME 10.4 Seconds (9.20-11.50)
--- NOTE | 2020-05-28 03:41 | NUR ---
ATTEMPT BY CHRISTIAN THOMPSON TO ESTABLISH EXTERNAL JUGULAR IV IN LEFT NECK UNSUCCESSFULL. DR BLAIR NOTIFIED.
--- NOTE | 2020-05-28 07:05 | NUR ---
RECEIVED PATIENT AT 0435. PATIENT ORIENTED TO UNIT, BED, CALL-LIGHT, AND HOSPITAL POLICY. PATIENT ASSESSMENT COMPLETED CHARTED. FALL PRECAUTIONS IN PLACE FOR PATIENT SAFETY. BED LOCKED AND IN LOWEST POSITION. SEIZURE PRECAUTIONS IN PLACE FOR PATIENT SAFETY. CLWR.
--- NOTE | 2020-05-28 08:38 | NUR ---
CM Attempted to assess for discharge planning needs. Nurse in room and curtain pulled. Will come back later.
--- NOTE | 2020-05-28 11:55 | EKG ---
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 : 1980 Requested By: Bernie Lyman Order Number: [id number] MD: Andrew Junior Measurements Intervals [place] Rate: 97 P: -11 [place]: 121 QRS: -35 QRSD: 82 T: -3 QT: 367 QTc: 466 Interpretive Statements Sinus rhythm Left axis deviation Borderline T abnormalities, inferior leads Compared to ECG 11/22/2018 19:17:24 Left-axis deviation now present T-wave abnormality now present Sinus tachycardia no longer present Myocardial infarct finding no longer present Electronically Signed On 05-28-2020 11:55:35 CDT by Andrew Junior [email or web address] <ELECTRONICALLY SIGNED> By: Andrew Junior MD, [facility] 05/28/20 1155 2353 2353 Andrew Junior MD, [facility] /EPI
[2020-05-28 16:03] LABS: ALBUMIN 2.8 g/dL (3.4-5.0); CALCIUM 7.8 mg/dL (8.5-10.1); CREATININE 1.1 mg/dL (0.6-1.3); TOTAL BILIRUBIN 0.6 mg/dL (<0.1-1.0); TOTAL PROTEIN 6.2 g/dL (6.4-8.2)
--- NOTE | 2020-05-28 17:29 | NUR ---
PT A&O x4, RESTFUL AND DROWSY THE WHOLE DAY. CIWA 15-18. ASSISTED WITH BATH. SEIZURE PRECAUTIONS MAINTAINED. BANANA BAG AND D5NS AT 100 MLS/HR. TOLERATING CLEAR LIQUIDS. VOIDING PER URINAL. UOP 400 MLS (DARK TEA COLORED)
[2020-05-29] VITALS (18 sets, daily range): BP systolic 119–157; BP diastolic 74–113
--- NOTE | 2020-05-29 07:35 | NUR ---
ASSUMED PATIENT CARE AT 1900. ASSESSMENTS COMPLETED CHARTED. CARDIAC MONITORING IN PLACE FOR PATIENT SAFETY. ONE OF PATIENT'S IVS INFILTRATED DURING SHIFT, DRAWER IN PLAIN LOOM AND THIS NURSE UNABLE TO START ANOTHER ONE. PATIENT CURRENTLY HAS ONE IV, DISCUSSED WITH DRAWER IN PLAIN LOOM AND ER PHYSICIAN. APPROVAL GIVEN FOR ONLY ONE IV AT THIS TIME. NO SEIZURES OBSERVED DURING SHIFT. SEIZURE PRECAUTIONS IN PLACE FOR PATIENT SAFETY. FALL PRECAUTIONS IN PLACE FOR PATIENT SAFETY. BED LOCKED AND IN LOWEST POSITION. CLWR.
--- NOTE | 2020-05-29 14:13 | NUR ---
PT OFF UNIT TO IR FOR PICC LINE PLACEMENT FROM [phone], THIS RN ACCOMPANIED PT DURING ENTIRE PROCEDURE. VERY DIFFICULT PLACEMENT OF R UA SINGLE-LUMEN PICC BY DR HARRELL. DR GRAMAJO NOTIFIED THIS AM OF BACK/ABD PAIN, ELEVATED DBP (OFF HOME AMLODIPINE SINCE ADMIT), AND REQUEST FOR REGULAR DIET; ORDERS RECEIVED. NORCO GIVEN ORDERED. PT TOLERATING SOLID FOODS WITHOUT C/O N/V. MOST RECENT CIWA 8, CALM AND COOPERATIVE. ORDER RECEIVED TO TRANSFER PT OUT OF ICU.
--- NOTE | 2020-05-29 15:15 | NUR ---
Attempted assessment x2 today. This am and early afternoon. Pt out of room for testing. Will continue to follow for discharge planning needs.
--- NOTE | 2020-05-29 19:29 | NUR ---
DOWNGRADED TO M/S STATUS. DECLINED BED BATH BUT ALLOWED THIS RN TO SHAMPOO & BRAID HAIR. LINENS CHANGED. CIWA 5. DENIES CONCERNS. CALL LIGHT WITHIN REACH.
[2020-05-30] VITALS: BP 137/96
[2020-05-30 03:49] VITALS: BP 135/89
[2020-05-30 04:49] LABS: URINE BILIRUBIN NEGATIVE (Negative); URINE BLOOD NEGATIVE (Negative); URINE CLARITY CLEAR; URINE COLOR YELLOW; URINE GLUCOSE-RANDOM NEGATIVE (Negative); URINE KETONES NEGATIVE (Negative); URINE LEUKOCYTES-REFLEX NEGATIVE (Negative); URINE NITRITE-REFLEX NEGATIVE (Negative); URINE PROTEIN NEGATIVE (Negative); URINE SPECIFIC GRAVITY 1.015 (1.005-1.030); URINE UROBILINOGEN 0.2 E.U./dl (0.2-1.0)
--- NOTE | 2020-05-30 04:56 | NUR ---
URINE SPECIMEN COLLECTED AND SENT TO LAB
--- NOTE | 2020-05-30 05:34 | NUR ---
PT HAS HAD GOOD NIGHT. PT IS ALERT AND ORIENTED, PT STATES HE NORMALLY HEARS VOICES AND HALLUCINATES ON A REGUALR BASIS. TREMORS HAVE DECREASED THROUGHOUT THE NIGHT. PT HAS HAD 3 BMS AFTER THE LACTULOSE GIVEN. RESP REG AND UNLABORES SKIN W/D. NO ACUTE DISTRESS THIS SHIFT WILL CONTINUE TO MONITOR
[2020-05-30 09:02] VITALS: BP 157/102
[2020-05-30 13:00] VITALS: BP 111/85
[2020-05-30 16:00] VITALS: BP 117/79
--- NOTE | 2020-05-30 18:26 | NUR ---
PT TOLERATED NC 4L/MIN WHOLE DAY. NAUSEOUS, ZOFRAN ADMINISTERED ONCE WITH PARTIAL RELIEF. VSS. PT ASSISTS WITH Q2 TURNS. APPETITE POOR, ENCOURAGED DIET. INSULIN ADMINISTERED PER SLIDING SCALE. SMALL BM ONCE THIS SHIFT. TELE STATUS.
--- NOTE | 2020-05-30 18:34 | NUR ---
PT'S A&O x4, SOMNOLENT MOST OF THE DAY. VSS. BANANA BAG AND D5NS CONTD AT 100 MLS/HR. ATIVAN PRN GIVEN ONCE FOR CIWA 9. TOLERATING DIET, GOOD UOP. BM ONCE THIS SHIFT.
[2020-05-30 20:00] VITALS: BP 137/86
[2020-05-31] VITALS: BP 135/87
[2020-05-31 04:00] VITALS: BP 138/97
[2020-05-31 07:42] LABS: ABSOLUTE BASOPHILS 0.1 thou/uL (0.0-0.2); ABSOLUTE EOSINOPHILS 0.4 thou/uL (0.0-0.7); ABSOLUTE LYMPHOCYTES 2.1 thou/uL (0.8-5.3); ABSOLUTE MONOCYTES 0.7 thou/uL (0.0-1.2); ABSOLUTE NEUTROPHILS 5.3 thou/uL (1.6-8.1); BASOPHILS 1.1 %; EOSINOPHILS 4.2 %; HEMATOCRIT 42.2 % (42.0-52.0); HEMOGLOBIN 14.4 gm/dL (14.0-18.0); LYMPHOCYTES 24.3 %; MCH 30.2 pg (26.0-34.0); MCV 88.9 fL (80.0-100.0); MONOCYTES 8.4 %; MPV 8.9 fl. (7.2-11.1); NUCLEATED RBCS 0 /100WBC; PLATELET COUNT* 324 thou/uL (150-400); RBC 4.75 mil/uL (4.50-6.00); RDW-CV 15.7 % (10.5-14.5); WBC 8.5 thou/uL (4.0-11.0)
[2020-05-31 07:45] LABS: CALCIUM 8.9 mg/dL (8.5-10.1); CREATININE 1.2 mg/dL (0.6-1.3); POTASSIUM 3.8 mmol/L (3.5-5.1)
[2020-05-31 08:00] VITALS: BP 173/109
[2020-05-31] MEDS ORDERED: VITAMIN B-1100 M1 PO (10:06)
[2020-05-31] MEDS ORDERED: KEPPRA 500 MG500 M1 PO (10:06)
[2020-05-31 12:36] VITALS: BP 124/90
[2020-05-31 13:02] VITALS: BP 124/90
--- NOTE | 2020-05-31 14:30 | NUR ---
RECEIVED REPORT. ASSUMED CARE OF PT AROUND 729. PT A&O X4. WITHDRAWING FROM ETOH. ATIVAN GIVEN SCHEDULED. MEDS PER EMAR. M/S STATUS. PT DENIED PAIN OR DISCOMFORT. CIWAS CHARTED. DISCHARGE ORDERS RECEIVED. DISCHARGE COMPLETED DOCUMENTED. DISCHARGE SUMMARY GONE OVER WITH PT, PT COMMUNICATES UNDERSTANDING. PT AWARE TO CAMPUS SUPERVISOR HIS SCRIPTS. IV REMOVED. ALL BELONGINGS GATHERED AND SENT OUT WITH PT. PT LEFT UNIT IN WC WITH NURSING STAFF. PT LEFT FACILITY IN CAR WITH FRIEND.
== END 2020-05-31 14:24 | disposition home or self-care (01) | DRG 897 ==
LOC: M.ERS 22:18 → M.TBA-ER 05-28 00:44 → M.ICU 05-28 02:23 → M.2W 05-30 20:03
PROVIDERS: Emergency Medicine; Internal Medicine; ADMIT Internal Medicine; ATTEND Internal Medicine
PROC: B548ZZA Ultrasonography of Superior Vena Cava, Guidance (ICD-10-PCS; principal; 2020-05-29)
PROC: 02HV33Z Insertion of Infusion Device into Superior Vena Cava, Percutaneous Approach (ICD-10-PCS; principal; 2020-05-29)
DX: F10.239 Alcohol dependence with withdrawal, unspecified (principal); G40.509 Epileptic seizures related to external causes, not intractable, without status epilepticus; Y90.9 Presence of alcohol in blood, level not specified; I10 Essential (primary) hypertension; F31.9 Bipolar disorder, unspecified; F17.210 Nicotine dependence, cigarettes, uncomplicated; F25.9 Schizoaffective disorder, unspecified; B86 Scabies; R10.9 Unspecified abdominal pain; Z20.828 Contact with and (suspected) exposure to other viral communicable diseases; Z91.19 Patient's noncompliance with other medical treatment and regimen; Z86.718 Personal history of other venous thrombosis and embolism; Z79.899 Other long term (current) drug therapy; Z88.8 Allergy status to other drugs, medicaments and biological substances

== ENCOUNTER 2020-10-09 20:00 | Inpatient (IN) | payer MEDICAID ==
[~2020-10-09] VITALS: Ht 177.8 cm; Wt 104.8 kg
[~2020-10-09 20:00] MED LIST changes: +KEPPRA 500 MG500 M1 PO; +VITAMIN B-1100 M1 PO
[2020-10-09 20:05] VITALS: BP 126/91
[2020-10-09] MEDS ORDERED: SEROQUEL 100 M100 M1 PO (20:07)
[2020-10-09] MEDS ORDERED: GABAPENTIN800 M1 PO (20:07)
[2020-10-09] MEDS ORDERED: NORVASC 2.5 MG2.5 M1 PO (20:11)
[2020-10-09 20:55] LABS: NUCLEATED RBCS 0 /100WBC
[2020-10-09 21:02] LABS: PROTIME 9.9 Seconds (9.20-11.50)
[2020-10-09 21:03] LABS: WBC ND thou/uL (4.0-11.0)
[2020-10-09 21:04] LABS: RBC ND mil/uL (4.50-6.00)
[2020-10-09 21:05] LABS: CALCIUM 8.9 mg/dL (8.5-10.1); CREATININE 1.4 mg/dL (0.6-1.3); POTASSIUM 3.6 mmol/L (3.5-5.1)
[2020-10-09 21:07] LABS: HEMATOCRIT ND % (42.0-52.0); HEMOGLOBIN ND gm/dL (14.0-18.0)
[2020-10-09 21:08] LABS: MCH ND pg (26.0-34.0); MCV ND fL (80.0-100.0)
[2020-10-09 21:09] LABS: MCHC ND g/dL (28.0-37.0); RDW-CV ND % (10.5-14.5)
[2020-10-09 21:10] LABS: MPV ND fl. (7.2-11.1); PLATELET COUNT* ND thou/uL (150-400)
[2020-10-09 21:13] LABS: ALBUMIN 3.4 g/dL (3.4-5.0); MAGNESIUM 1.9 mg/dL (1.8-2.4); TOTAL BILIRUBIN 0.3 mg/dL (<0.1-1.0); TOTAL PROTEIN 6.9 g/dL (6.4-8.2)
[2020-10-09 21:21] LABS: INR < 0.9
[2020-10-09 22:02] LABS: ABSOLUTE BASOPHILS 0.1 thou/uL (0.0-0.2); ABSOLUTE LYMPHOCYTES 1.4 thou/uL (0.8-5.3); ABSOLUTE MONOCYTES 0.9 thou/uL (0.0-1.2); ABSOLUTE NEUTROPHILS 5.1 thou/uL (1.6-8.1); BASOPHILS 1.3 %; EOSINOPHILS 0.5 %; HEMATOCRIT 36.4 % (42.0-52.0); HEMOGLOBIN 12.1 gm/dL (14.0-18.0); LYMPHOCYTES 18.8 %; MCHC 33.2 g/dL (28.0-37.0); MCV 87.5 fL (80.0-100.0); MONOCYTES 11.8 %; MPV 8.6 fl. (7.2-11.1); NUCLEATED RBCS 0 /100WBC; PLATELET COUNT* 258 thou/uL (150-400); POLYS 67.6 %; RBC 4.16 mil/uL (4.50-6.00); RDW-CV 15.8 % (10.5-14.5); WBC 7.5 thou/uL (4.0-11.0)
[2020-10-09 23:41] VITALS: BP 112/64
[2020-10-10] VITALS (14 sets, daily range): BP systolic 110–147; BP diastolic 69–107
[2020-10-10 05:36] LABS: URINE BILIRUBIN NEGATIVE (Negative); URINE BLOOD NEGATIVE (Negative); URINE CLARITY CLEAR; URINE COLOR YELLOW; URINE GLUCOSE-RANDOM NEGATIVE (Negative); URINE KETONES NEGATIVE (Negative); URINE LEUKOCYTES-REFLEX NEGATIVE (Negative); URINE NITRITE-REFLEX NEGATIVE (Negative); URINE PROTEIN NEGATIVE (Negative); URINE SPECIFIC GRAVITY >= 1.030 (1.005-1.030); URINE UROBILINOGEN 0.2 E.U./dl (0.2-1.0)
[2020-10-10 05:48] LABS: AMP/METHAMP POSITIVE (Negative); BARBITURATES Negative (Negative); BENZODIAZEPINES POSITIVE (Negative); COCAINE Negative (Negative); METHADONE Negative (Negative); OPIATES Negative (Negative); PCP Negative (Negative); THC Negative (Negative)
[2020-10-11 01:05] VITALS: BP 142/105
[2020-10-11 04:32] VITALS: BP 139/86
[2020-10-11 08:00] VITALS: BP 133/79
[2020-10-11 11:04] LABS: CALCIUM 9.2 mg/dL (8.5-10.1); CREATININE 1.1 mg/dL (0.6-1.3); POTASSIUM 3.9 mmol/L (3.5-5.1)
[2020-10-11 11:08] LABS: MAGNESIUM 2.1 mg/dL (1.8-2.4); PHOSPHORUS* 3.5 mg/dL (2.5-4.9)
[2020-10-11 12:00] VITALS: BP 139/75
[2020-10-11 17:00] VITALS: BP 141/81
[2020-10-11 20:00] VITALS: BP 143/100
[2020-10-12] VITALS: BP 124/87
[2020-10-12 04:00] VITALS: BP 111/76
[2020-10-12 08:00] VITALS: BP 125/82
--- NOTE | 2020-10-12 10:27 | EKG ---
[place] [address] ELECTROCARDIOGRAM REPORT Name: JOSH MONTERO Room: [address] ADM IN .R.#: [id number] Admission: 10/09/20 Attend Phys: Evin Toledo, Discharge: Date of : 82 Date of Service: 10/09/202023 Report #: [id number] THIS REPORT FOR: //name// [facility] ED Test Date: 2020-10-09 Test Time: 20:24:57 Pat Name: JOSH MONTERO Department: Room: [facility] Gender: M Telemarketing Manager: MARIA DE JESUS : 1980 Requested By: Bernie Lyman Order Number: [id number] MD: Brandan Peña Measurements Intervals [place] Rate: 127 P: 31 GA: 123 QRS: -42 QRSD: 78 T: 53 QT: 322 QTc: 469 Interpretive Statements Sinus tachycardia Left anterior fascicular block Low voltage, precordial leads Compared to ECG 05/27/2020 23:53:22 Low QRS voltage now present Sinus rhythm no longer present Electronically Signed On 10-12-2020 10:27:13 CHIEF SCIENTIFIC OFFICER by Brandan Peña [email or web address] <ELECTRONICALLY SIGNED> By: Brandan Peña MD, FACC 10/12/20 1027 23 23 Brandan Peña MD, [facility] /EPI
--- NOTE | 2020-10-12 10:27 | EKG ---
[place] [address] ELECTROCARDIOGRAM REPORT Name: JOSH MONTERO Room: [address] ADM IN M.R.#: [id number] Admission: 10/09/20 Attend Phys: Evin Toledo, Discharge: Date of : 82 Date of Service: 10/11/20 1113 Report #: [id number] THIS REPORT FOR: //name// [facility] Test Date: 2020-10-11 Test Time: 11:13:07 Pat Name: JOSH MONTERO Department: Room: [address] Gender: M Supervisor Packing: : 1980 Requested By: Willy Seo Order Number: [id number] MD: Brandan Peña Measurements Intervals [place] Rate: 100 P: 0 [place]: 123 QRS: -43 QRSD: 87 T: 7 QT: 353 QTc: 456 Interpretive Statements Sinus tachycardia Left anterior fascicular block Electronically Signed On 10-12-2020 10:27:40 PERSONAL DRIVER by Brandan Peña [email or web address] <ELECTRONICALLY SIGNED> By: Brandan Peña MD, [facility] 10/12/20 1027 111 12 Brandan Peña MD, [facility] /EPI
[2020-10-12 12:00] VITALS: BP 126/89
[2020-10-12 12:58] VITALS: BP 126/89
== END 2020-10-12 17:35 | disposition home or self-care (01) | DRG 897 ==
LOC: M.ERS 20:00 → M.TBA-ER 22:41 → M.2W 22:41 → M.ICU 23:39 → M.2W 10-10 18:35
PROVIDERS: Emergency Medicine; Internal Medicine; ADMIT Internal Medicine; ATTEND Internal Medicine
PROC: 02HV33Z Insertion of Infusion Device into Superior Vena Cava, Percutaneous Approach (ICD-10-PCS; principal; 2020-10-10)
DX: F10.230 Alcohol dependence with withdrawal, uncomplicated (principal); I10 Essential (primary) hypertension; F31.9 Bipolar disorder, unspecified; G40.909 Epilepsy, unspecified, not intractable, without status epilepticus; F17.210 Nicotine dependence, cigarettes, uncomplicated; F20.9 Schizophrenia, unspecified; F43.10 Post-traumatic stress disorder, unspecified; G93.81 Temporal sclerosis; J45.909 Unspecified asthma, uncomplicated; Z20.822 Contact with and (suspected) exposure to COVID-19; Z71.41 Alcohol abuse counseling and surveillance of alcoholic; Z79.899 Other long term (current) drug therapy; Z88.8 Allergy status to other drugs, medicaments and biological substances; Z83.3 Family history of diabetes mellitus

== ENCOUNTER 2021-05-31 23:00 | Emergency (ER) | payer MEDICAID ==
[~2021-05-31] VITALS: Ht 177.8 cm; Wt 86.2 kg
[~2021-05-31 23:00] MED LIST changes: +GABAPENTIN800 M1 PO; +NORVASC 2.5 MG2.5 M1 PO; +SEROQUEL 100 M100 M1 PO
[2021-06-01 00:02] LABS: HEMATOCRIT 44.2 % (42.0-52.0); MCH 31.8 pg (26.0-34.0); MCHC 33.9 g/dL (28.0-37.0); MCV 93.8 fL (80.0-100.0); MPV 8.6 fl. (7.2-11.1); RBC 4.71 mil/uL (4.50-6.00); RDW-CV 14.7 % (10.5-14.5); WBC 6.8 thou/uL (4.0-11.0)
[2021-06-01 00:25] LABS: CALCIUM 8.3 mg/dL (8.5-10.1); CREATININE 1.1 mg/dL (0.6-1.3); POTASSIUM 3.4 mmol/L (3.5-5.1)
[2021-06-01 00:30] LABS: ALBUMIN 3.7 g/dL (3.4-5.0); ALCOHOL 334 mg/dL (<10); SALICYLATE 3.7 mg/dL (2.8-20.0); TOTAL BILIRUBIN 0.2 mg/dL (<0.1-1.0); TOTAL PROTEIN 6.9 g/dL (6.4-8.2)
[2021-06-01 00:32] LABS: ACETAMINOPHEN < 2 ug/mL (10-30)
[2021-06-01 02:49] LABS: MAGNESIUM 2.2 mg/dL (1.8-2.4); PHOSPHORUS* 3.5 mg/dL (2.5-4.9)
[2021-06-01 03:05] LABS: URINE BILIRUBIN NEGATIVE (Negative); URINE BLOOD NEGATIVE (Negative); URINE CLARITY CLEAR; URINE COLOR STRAW; URINE GLUCOSE-RANDOM NEGATIVE (Negative); URINE KETONES NEGATIVE (Negative); URINE LEUKOCYTES NEGATIVE (Negative); URINE NITRITE NEGATIVE (Negative); URINE PROTEIN NEGATIVE (Negative); URINE UROBILINOGEN 0.2 E.U./dl (0.2-1.0)
[2021-06-01 03:13] LABS: AMP/METHAMP POSITIVE (Negative); BARBITURATES POSITIVE (Negative); BENZODIAZEPINES Negative (Negative); COCAINE Negative (Negative); METHADONE Negative (Negative); OPIATES Negative (Negative); PCP Negative (Negative); THC POSITIVE (Negative)
[2021-06-01 03:23] VITALS: BP 120/89
== END 2021-06-01 03:23 | disposition home or self-care (01) ==
LOC: M.ERS 23:00
PROVIDERS: Personal Emergency Response Attendant
DX: F10.920 Alcohol use, unspecified with intoxication, uncomplicated (principal); Z20.822 Contact with and (suspected) exposure to COVID-19; G40.909 Epilepsy, unspecified, not intractable, without status epilepticus; F19.230 Other psychoactive substance dependence with withdrawal, uncomplicated; I10 Essential (primary) hypertension; F20.9 Schizophrenia, unspecified; J45.909 Unspecified asthma, uncomplicated; Z79.899 Other long term (current) drug therapy; F17.210 Nicotine dependence, cigarettes, uncomplicated; Z88.8 Allergy status to other drugs, medicaments and biological substances